=== PATIENT | female | born 1935 | race Caucasian/White ===

== ENCOUNTER 2016-06-07 18:35 | Emergency (ER) | END 2016-06-07 19:22 | disposition home or self-care (01) | DX: H10.9 Unspecified conjunctivitis (principal); I10 Essential (primary) hypertension; E11.9 Type 2 diabetes mellitus without complications; Z79.84 Long term (current) use of oral hypoglycemic drugs ==

== ENCOUNTER 2016-06-17 16:33 | Inpatient (IN) | payer OTHER ==
[~2016-06-17] VITALS: Ht 152.4 cm; Wt 70.0 kg
[~2016-06-17 16:33] MED LIST: AMLO5TAB4 PO; CEPH500C PO; CETI10CA PO; CHLO25TA13 PO; METF-382 PO; NAPH15DR22 BOTH EYES; ONDA-43 PO; POLY10DR19 BOTH EYES; SIMV40TA2 PO; SITA100T8 PO
[2016-06-17] MEDS ORDERED: CEFTRIAXONE 1 GM/50 ML (PMX) 50 ML IVPB STA (20:20)
[2016-06-17] MEDS ORDERED: SODIUM CHLORIDE 0.9% 1L BAG IV* STA (20:20)
--- NOTE | 2016-06-17 20:57 | RADRPT ---
PROCEDURE: XR Chest. CLINICAL INDICATION: See possible sepsis. TECHNIQUE: Single frontal view of the chest was obtained COMPARISON: One-view chest x-ray June 01, 2015 at a 18 PA. FINDINGS: There are atherosclerotic calcifications in the aortic arch. There are degenerative osteophytes in the thoracic spine. The soft tissues are generous. The heart, pulmonary vasculature, lung marino an d pleural spaces are normal. There is a suboptimal inspiratory effort. No changes noted compared to the prior study. IMPRESSION: 1. Stable chest x-ray with no evidence of active cardiopulmonary disease. RPTAT:AAJJ Physician Dave Date Time Electronically viewed and signed by Jesus Manuel Mullins Physician on 06/17/2016 20:57 JEFFERSON/
[2016-06-17 21:31] LABS: HEMATOCRIT 42.8 % (37.0-47.0); HEMOGLOBIN 14.5 g/dl (12.0-16.0); MEAN CORPUSCULAR HEMOGLOBIN 31.4 pg (29.0-33.0); MEAN CORPUSCULAR VOLUME 92.2 fl (82.0-101.0); MEAN PLATELET VOLUME 8.5 fl (7.4-10.4); PLATELET COUNT 362 10^3/UL (140-440); RED BLOOD COUNT 4.64 10^6/ul (4.20-5.40); RED CELL DISTRIBUTION WIDTH 13.6 % (11.5-14.5); UNCORRECTED WBC 28.2 10^3/ul (4.8-10.8); WHITE BLOOD COUNT 28.2 10^3/ul (4.8-10.8)
[2016-06-17 21:38] LABS: CONDITION 1; LH ANALYZER COMMENTS 1; SUSPECT 1
[2016-06-17 21:40] LABS: INR 0.99; PROTIME 13.1 Sec (12.2-14.2)
[2016-06-17 21:41] LABS: PARTIAL THROMBOPLASTIN TIME 29.2 Sec (25.0-35.0)
[2016-06-17 21:51] LABS: ALBUMIN 3.9 g/dl (3.3-4.9); POTASSIUM 3.4 mmol/L (3.5-5.1)
[2016-06-17 21:53] LABS: CREATININE 0.63 mg/dl (0.44-1.00)
[2016-06-17 21:54] LABS: ALBUMIN/GLOBULIN RATIO 1.14; TOTAL PROTEIN 7.3 g/dl (6.1-8.1)
[2016-06-17 21:55] LABS: CALCIUM 8.7 mg/dl (8.4-10.2)
[2016-06-17 22:04] LABS: TROPONIN-I 0.019 ng/ml (0.00-0.12)
[2016-06-17] MEDS ORDERED: VANCOMYCIN 1 GM (PMX) 250 ML IVPB SCH (22:30)
[2016-06-17 22:34] LABS: ADD UMIC YES; URINE BILIRUBIN (Dip) NEGATIVE (NEGATIVE); URINE BLOOD (Dip) 1+ (NEGATIVE); URINE COLOR LT. YELLOW (YELLOW); URINE GLUCOSE (Dip) NEGATIVE (NEGATIVE); URINE KETONES (Dip) NEGATIVE (NEGATIVE); URINE LEUKOCYTE ESTERASE (Dip) NEGATIVE (NEGATIVE); URINE NITRITE (Dip) NEGATIVE (NEGATIVE); URINE TOTAL PROTEIN (Dip) NEGATIVE (NEGATIVE); URINE UROBILINOGEN (Dip) 0.2 E.U./dL (0.1-1.0)
[2016-06-17 22:49] LABS: BACTERIA,URINE MODERATE; SQUAMOUS EPITHELIAL CELL,UR MODERATE
[2016-06-17 23:09] LABS: LYMPHOCYTES # 2.5 10^3/ul (0.8-2.9); MONOCYTE # 1.4 10^3/ul (0.3-0.9); NEUTROPHIL # 23.1 10^3/ul (1.6-7.5)
[2016-06-17 23:10] LABS: PLATELET ESTIMATE PLT APPEAR ADEQUATE
--- NOTE | 2016-06-17 23:13 | RADRPT ---
PROCEDURE: CT Head without contrast. CLINICAL INDICATION: Sepsis TECHNIQUE: The study was performed utilizing a GE 64-slice multidetector CT scanner. Direct spiral axial CT images of the brain were obtained from the vertex to the skull base without contrast. The CTDI vol is 41.12 mGy and the DLP is 630.2 mGy-cm. The images were reviewed on a PACS workstation. COMPARISON: No prior studies are available for comparison. FINDINGS: Mild diffuse atrophy is seen with a compensatory ventricular enlargement. Mild to white matter dise ase in the periventricular and deep white matter is seen. A chronic infarct in the right anterior i nsular region is seen. The remaining jara-white matter differentiation is maintained. No intra or extra-axial fluid collection or mass effect or shift in the midline structures is seen. The visuali zed paranasal sinuses, mastoid air cells, orbits, and calvarium are unremarkable. Vascular calcifica tions are seen. IMPRESSION: 1. No acute intracranial pathology. 2. Mild diffuse volume loss and mild chronic microvascular ischemic changes. 3. 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 RPTAT: HPNM Physician Payt Date Time Electronically viewed and signed by Physician Paty on 06/17/2016 23:13 /
--- NOTE | 2016-06-17 23:24 | RADRPT ---
PROCEDURE: CT Abdomen and Pelvis without contrast. CLINICAL INDICATION: Sepsis TECHNIQUE: CT scan of the abdomen and pelvis without contrast was performed on a multidetector hig h-resolution CT scanner. The patient was scanned without intravenous contrast. No oral contrast was administered. Coronal and sagittal reformatted images were obtained from the axial source images. Im ages were reviewed on a high-resolution PACS workstation. The total exam CTDI equals 13.95 mGy and the total exam DLP equals 696.76 mGy-cm. One or more of the following dose reduction techniques were used: - Automated exposure control. - Adjustment of the mA and/or kV according to patient size. - Use of iterative reconstruction technique. COMPARISON: 11/23/2015 FINDINGS: Lungs: Linear atelectasis/fibrosis is seen at the lung bases. Mitral annulus region calcification ap parent. Calcification in thoracic aorta. Liver: Minimal hepatic steatosis. 2.1 cm oval fluid density structure in medial segment of the left lobe of liver again seen likely a cyst. Gallbladder: Cholecystectomy. Spleen: No abnormality seen. Stomach: The stomach is not fully distended. No gross abnormality seen. Pancreas: No abnormality seen. Adrenals: No abnormality seen. Kidneys: Bilateral minimal hydronephrosis again seen. No renal stone or ureteral stone is seen. Abdominal aorta: No aneurysm seen. Atherosclerotic calcification is seen. Calcification in superio r mesenteric and bilateral iliac arteries. Lymph nodes: No enlarged lymph nodes are seen. Small bowel: No dilated small bowel loops are seen. Colon: Diverticula in sigmoid and descending colon. There is no specific evidence of acute divertic ulitis seen. Appendix: No abnormality seen. Bladder: No abnormality seen Pelvic organs: Small calcifications again seen in the uterus and small oval areas of decreased dens ity again seen in the uterus consistent with uterine fibroids. Ascites: None seen. Osseous structures: Lumbar spondylosis. Degenerative changes at sacroiliac joints and hips. Likely small bone island in the left ischium again seen. Osteitis pubis. Small umbilical hernia containing fat only. IMPRESSION: Minimal hepatic steatosis. Bilateral minimal hydronephrosis again seen. Atherosclerosis. Colonic d iverticulosis. No specific evidence of acute diverticulitis seen. Consistent with uterine fibroids again seen. Please see above. RPTAT: HJES .Matt Simons MD, MD Date Time Electronically viewed and signed by .Matt Simons MD, on 06/17/2016 23:23 .S/
[2016-06-17] MEDS ORDERED: LIDOCAINE 1% (MDV) 20 ML INJ ONE (23:44)
[2016-06-18] VITALS (11 sets, daily range): BP systolic 111–147; BP diastolic 41–69; PULSE 64–71; RESP 18; TEMP 97.7
[2016-06-18 00:22] LABS: # OF CELLS COUNTED 100
[2016-06-18] MEDS ORDERED: CEFTRIAXONE 1 GM/50 ML (PMX) 50 ML IVPB ONE (00:30)
[2016-06-18 00:33] LABS: # OF CELLS COUNTED 100
[2016-06-18 00:55] LABS: GLUCOSE,CSF 98 mg/dl (50-80)
[2016-06-18 00:57] LABS: %CREANATED RBC CSF 0 %; CSF COLOR COLORLESS; CSF#TUBE COUNT TUBE#1; CSF#TUBES REC'D 4
[2016-06-18 00:58] LABS: %CREANATED RBC CSF 0 %; CSF COLOR COLORLESS; CSF#TUBE COUNT TUBE#4; CSF#TUBES REC'D 4
[2016-06-18] MEDS ORDERED: ONDANSETRON 4 MG INJ IV PRN ×2 (01:30→06:30)
[2016-06-18] MEDS ORDERED: ACETAMINOPHEN 325 MG TAB PO PRN ×2 (01:30→06:30)
--- NOTE | 2016-06-18 01:34 | ERA ---
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 no neuro HPI This 81 -year-old female presents with fever, chills, congestion going on for one day. States that she has a headache, neck pain and back pain is her main symptoms. Missed having a very mild cough. Denies any focal weakness blurred vision or any neurological deficits. 4 hours ago when she was cleaning on the floor she stood up and walked a few steps, became very lightheaded and fell down to a seated position. Denies head injury according to family. ROS All systems reviewed and are negative except as per history of present illness. Medications Home Meds Active Scripts Cetirizine Hcl* (Zyrtec*) 10 Mg Capsule, 10 MG PO DAILY, #30 TAB.CHEW Prov:HUSSEIN CORTES CHIEF SUSTAINABILITY OFFICER 06/07/16 Naphazoline-Pheniramine* (Visine-A*) 15 Ml Drops, 2 DROP BOTH EYES Q4H Y for RED EYES, #1 BOT Prov:HUSSEIN CORTES NP 06/07/16 Polymyxin B Sulfate-TMP* (Polymyxin B-TMP Eye Drops*) 10 Ml Drops, 1 DROP BOTH EYES QID for 7 Days, EA Prov:HUSSEIN CORTES CHIEF SUSTAINABILITY OFFICER 06/07/16 Amlodipine Besylate* (Norvasc*) 5 Mg Tablet, 5 MG PO BID, #60 TAB Prov:KRISTIAN ERICKSON MD 11/24/15 Cephalexin* (Cephalexin*) 500 Mg Capsule, 500 MG PO Q8, #21 CAP Prov:KRISTIAN ERICKSON MD 11/24/15 Ondansetron Hcl* (Zofran*) 4 Mg Tab, 4 MG PO Q6H Y for NAUSEA AND OR VOMITING, # 20 TAB Prov:KRISTIAN ERICKSON MD 11/24/15 Reported Medications Sitagliptin* (Januvia*) 100 Mg Tablet, 100 MG PO DAILY, #30 TAB 11/23/15 Simvastatin* (Zocor*) 40 Mg Tablet, 40 MG PO QHS, #30 TAB 11/23/15 Chlorthalidone* (Chlorthalidone*) 25 Mg Tablet, 25 MG PO DAILY, TAB 11/23/15 Metformin Hcl* (Metformin Hcl*) 500 Mg Tablet, 500 MG PO BID 05/20/13 Allergies Allergies: Coded Allergies: No Known Drug Allergy (Verified Allergy, Unknown, 11/23/15) PMhx/Soc History of Surgery: Yes (Cholecystectomy) Anesthesia Reaction: No Hx Neurological Disorder: No Hx Respiratory Disorders: No Hx Cardiac Disorders: Yes (HTN) Hx Psychiatric Problems: No Hx Miscellaneous Medical Probl: Yes (DM2,Dyslipidemia,[place] Eyes,Ventral Umbilical Hernia) Hx Alcohol Use: No Hx Substance Use: No Hx Tobacco Use: No Smoking Status: Never smoker Physical Exam Vitals Vital Signs Date Time Temp Pulse Resp B/P Pulse Ox O2 Delivery O2 Flow Rate FiO2 06/17/16 17:09 102.8 100 22 160/63 98 Physical Exam Const: [] No acute distress Head: Atraumatic Eyes: Normal Conjunctiva EOMI, PERRLA ENT: Normal External Ears, Nose and Mouth. Neck: Full range of motion..~Pain on attempted flexion of neck. Resp: Clear to auscultation bilaterally Cardio: Regular tachycardia, no murmurs Abd: Soft, non tender, non distended. Normal bowel sounds Skin: No petechiae or rashes Back: No midline or flank tenderness Ext: No cyanosis, or edema Neur: Awake and alert oriented 3, cranial nerves II through XII intact, no cerebellar deficits Psych: Normal Mood and Affect Result Diagram: 06/17/16202906/17/162029 Results 24 hrs Laboratory Tests Test 06/17/16 20:30 06/17/16 22:10 06/17/16 22:30 06/17/16 23:00 Activated Partial Thromboplast Time 29.2Sec Alanine Aminotransferase (ALT/SGPT) 24IU/L Albumin 3.9g/dl Albumin/Globulin Ratio 1.14 Alkaline Phosphatase 137IU/L Anion Gap 19 Aspartate Amino Transf (AST/SGOT) 22IU/L Band Neutrophils % 4.0% Blood Urea Nitrogen 18mg/dl Calcium Level 8.7mg/dl Carbon Dioxide Level 30mmol/L Chloride Level 95mmol/L Creatinine 0.63mg/dl Direct Bilirubin 0.00mg/dl Globulin 3.40g/dl Glucose Level 201mg/dl Hematocrit 42.8% Hemoglobin 14.5g/dl INR International Normalized Ratio 0.99 Indirect Bilirubin 1.0mg/dl Lactic Acid Level 3.5mmol/L 3.2mmol/L Lymphocytes # 2.510^3/ul Lymphocytes % 9.0% Mean Corpuscular Hemoglobin 31.4pg Mean Corpuscular Hemoglobin Concent 34.0g/dl Mean Corpuscular Volume 92.2fl Mean Platelet Volume 8.5fl Monocytes # 1.410^3/ul Monocytes % 5.0% Neutrophils # 23.110^3/ul Neutrophils % 82.0% Platelet Count 47708^3/UL Platelet Estimate PLT APPEAR ADEQUATE Potassium Level 3.4mmol/L Prothrombin Time 13.1Sec Prothrombin Time Ratio 1.0 Red Blood Count 4.6410^6/ul Red Cell Distribution Width 13.6% Sodium Level 141mmol/L Total Bilirubin 1.0mg/dl Total Protein 7.3g/dl Troponin I 0.019ng/ml White Blood Count 28.210^3/ul Urine Bacteria MODERATE Urine Bilirubin NEGATIVE Urine Clarity CLEAR Urine Color LT. YELLOW Urine Glucose NEGATIVE% Urine Hemoglobin 1+ Urine Ketones NEGATIVE Urine Leukocyte Esterase NEGATIVE Urine Microscopic RBC 2-5/HPF Urine Microscopic WBC 0-2/HPF Urine Nitrite NEGATIVE Urine Specific [place] 1.010 Urine Squamous Epithelial Cells MODERATE Urine Total Protein NEGATIVE Urine Urobilinogen 0.2 E.U./dL Urine pH 6.0 CSF Appearance CLEAR CSF Cell Count Tube # TUBE#4 CSF Color COLORLESS CSF Crenated Cells 0% CSF Glucose 98mg/dl CSF Lymphocytes % % CSF Monocytes % % CSF Neutrophils % % CSF RBC 4/uL CSF Total Cells Counted 100 CSF Total Protein 51mg/dl CSF Tubes Submitted 4 CSF Volume 4.0ml CSF WBC 0/uL Current Medications Medications (Trade) Dose Ordered Sig/Osmar Route PRN Reason Start Time Stop Time Status Last Admin Dose Admin Sodium Chloride 2170 ml 2,170 ml BOLUS OVER 2 HOURS STAT IV* 06/17/16 20:20 06/17/16 20:21 DC 06/17/16 20:30 Ceftriaxone Sodium 50 ml @ 100 mls/hr ONCE STAT IVPB 06/17/16 20:20 06/17/16 20:49 DC 06/17/16 20:30 Vancomycin HCl (Vancocin) 250 ml @ 125 mls/hr ONCE IVPB 06/17/16 22:30 06/18/16 00:29 DC 06/17/16 22:22 Lidocaine 20 ml 20 ml STK-MED ONCE .ROUTE 06/17/16 23:44 06/17/16 23:45 DC Ceftriaxone Sodium (Rocephin) 50 ml @ 100 mls/hr ONCE ONCE IVPB 06/18/16 00:30 06/18/16 00:59 DC 06/18/16 00:51 Ondansetron HCl (Zofran Inj) 4 mg ER BRIDGE PRN IV NAUSEA AND/OR VOMITING 06/18/16 01:30 06/19/16 01:29 Acetaminophen (Tylenol Tab) 650 mg ER BRIDGE PRN PO MILD PAIN/FEVER 06/18/16 01:30 06/19/16 01:29 Procedures/MDM 21-year-old female sepsis and stated significant leukocytosis without obvious source. Persistent described patient has a flulike illness or possible meningitis. She was treated with 2 g of Rocephin and vancomycin emergency room lumbar puncture was done. Blood cultures were taken. She is given 30 mL of kilogram IV fluid bolus. She does have a ST depressions in inferior leads of her EKG with no ST elevations. Her troponin is negative but should be trended for signs of any cardiac injury. She was given aspirin 325 mg. Of her EKG She was stated she felt better in the emergency room. Initial CSF studies. He been negative for meningitis. May her for further evaluation and monitoring. Dr. Mirza is admitting the patient. CT head interpretation by myself: No hemorrhage, no mass effect, no midline shift, no herniation. No skull fractures. [address] of pelvis interpretation: I see no acute process, no air-fluid levels indicating obstruction, no free air, no abnormal fat stranding, no fractures Chest x-ray interpretation: See no infiltrates, no widened mediastinum, no pneumothorax, no pulmonary edema, no fractures EKG interpretation: Normal sinus rhythm, normal axis, mild ST depressions in leads 2 and 3 concerning for possible ischemia. Critical care time 44 minutes: Includes treatment of sepsis in patient with significant low with a white count as well as signs of possible ischemia an EKG , careful fluid administration, early antibiotic administration, chart review, discussion with patient, family admitting doctor, multiple visits the patient's bedside to reassess status. This does not include any bowl procedures Lumbar puncture note: Sterile technique was used with gown and mask, Gloves. Patient was cleaned with iodine, anesthetized with 4 mL of lidocaine with epinephrine. 20-gauge lumbar puncture needle was used to easily obtain clear cerebral spinal fluid at the L2-L3 level. Patient tolerated the procedure well or no complications. Departure Diagnosis: Primary Impression: Sepsis Additional Impressions: Acute headache Syncope Lactic acidosis Condition: Serious EARL BLACKBURN DO Jun 18, 2016 01:33
[2016-06-18] MEDS ORDERED: NACL 0.9% 3 ML SYG IV SCH (06:30)
[2016-06-18] MEDS ORDERED: LEVOFLOXACIN 500MG/D5W (PMX) 100 ML IVPB ONE (06:30)
[2016-06-18] MEDS ORDERED: NAPHAZOLINE/PHENIRAMINE 15 ML OPH BOTH EYES PRN (06:30)
[2016-06-18] MEDS ORDERED: LORAZEPAM 0.5 MG TAB PO PRN (06:30)
[2016-06-18] MEDS ORDERED: ALBUTEROL/IPRATROPIUM (NEB) 3 ML AMP HHN PRN (06:30)
[2016-06-18] MEDS ORDERED: morphine 2 MG INJ IV PRN (06:30)
--- NOTE | 2016-06-18 06:42 | HP ---
Date/Time of Note Date/Time of Note DATE: 06/18/16 TIME: 06:29 Assessment/Plan VTE Prophylaxis VTE Prophylaxis Intervention: heparin Lines/Catheters Urinary Cath still in place: No Assessment/Plan Assessment/Plan IMPRESSION 1. Sepsis, with unknown source, but possible meningitis - Cont abx - f/u Culture results, including LP result - ID consult 2. ST depression - no chest pain - trop x 1 neg, will trend - Will obtain 2D-echo and cardiology consult 3. HTN: - cont home meds and adjust as needed 4. Diabetes - hold metformin especially given elevated lactate - cont Januvia and insulin - check A1c HPI/ROS Admit Date/Time Admit Date/Time Jun 18, 2016 at 01:20 Hx of Present Illness This is a an 80-year-old female with past medical history of hypertension, diabetes mellitus, dyslipidemia, who presents to the hospital with complain of fever, chills, headache, neck pain and back pain and very mild cough. Denies any focal weakness blurred vision or any neurological deficits. 4 hours prior to presenting to ER, while she was cleaning on the floor, she stood up and walked a few steps, became very lightheaded and fell down to a seated position. not sure if lost consciousness. Denies head injury according to family. Pt was last admitted here on 11/23/2015 secondary to having abdominal discomfort accompanied with nausea and 4 episodes of nonbilious, nonbloody vomiting. In ER, she was febrile with a temp of 102.8 with HR of 100. She also was found to have a WBC of 28K. UA, CXR, CTa/p and Head CT neg for acute findings. LP was done in ER. Of note, EKG showed ST depression. pt without chest pain. trop x 1 neg . PMH/Family/Social Past Medical History Medical History: diabetes, hypertension Social History Alcohol Use: none Smoking Status: Never smoker Drug Use: none Exam/Review of Systems Vital Signs Vitals Vital Signs Date Time Temp Pulse Resp B/P Pulse Ox O2 Delivery O2 Flow Rate FiO2 06/18/16 05:24 68 06/18/16 04:00 97.7 22 119/58 99 Room Air Exam Exam GENERAL APPEARANCE: The patient is lying in bed comfortably without any acute distress. She is awake, alert, oriented. She is able to answer my questions properly. HEENT no obvious head deformity, EOMI, PERRL RESPIRATORY: Effort is normal. Clear to auscultate bilaterally. CARDIOVASCULAR: tachycardic with regular rhythm CHEST: clear GASTROINTESTINAL: soft, nontender, not distended. Bowel sound is present. No guarding, no rebound. NEUROLOGIC: no focal deficit Labs Result Diagram: 06/17/16202906/17/162029 Medications Medications Current Medications Amlodipine Besylate (Norvasc) 5 mg BID PO ; Start 06/18/16 at 09:00; Status UNV Chlorthalidone (Hygroton) 25 mg DAILY PO ; Start 06/18/16 at 09:00; Status UNV Naphazoline HCl/ Pheniramine Maleate (Visine-A) 2 drop Q4H PRN BOTH EYES RED EYES; Start 06/18/16 at 06:30; Status UNV Polymyxin/ Trimethoprim Sulfate (Polytrim Oph) 1 drop QID BOTH EYES ; Start 06/18 at 09:00; Status UNV Miscellaneous Information 100 mg DAILY PO ; Start 06/18/16 at 09:00; Status UNV Atorvastatin Calcium (Lipitor) 20 mg HS PO ; Start 06/18/16 at 21:00; Status UNV Lorazepam (Ativan) 0.5 mg Q8H PRN PO ANXIETY; Start 06/18/16 at 06:30; Status UNV Ondansetron HCl (Zofran Inj) 4 mg Q6H PRN IV NAUSEA AND/OR VOMITING; Start 06/18 at 06:30; Status UNV Acetaminophen (Tylenol Tab) 650 mg Q6H PRN PO PAIN LEVEL 1-3 OR FEVER; Start at 06:30; Status UNV Morphine Sulfate (morphine) 2 mg Q4H PRN IV PAIN LEVEL 7-10; Start 06/18/16 at 06:30; Status UNV Famotidine (Pepcid) 20 mg Q12 PO ; Start 06/18/16 at 09:00; Status UNV Heparin Sodium (Porcine) 5000 unit 5,000 unit Q12 SC ; Start 06/18/16 at 09:00; Status UNV Levofloxacin/ Dextrose 100 ml @ 100 mls/hr ONCE ONCE IVPB ; Start 06/18/16 at 06:30; Stop 06/18/16 at 07:29 Levofloxacin/ Dextrose (Levaquin 250 Mg/ D5W 50 ml (Pmx)) 50 ml @ 50 mls/hr Q24H IVPB ; Start 06/19/16 at 06:30 RODRICK HART MD Jun 18, 2016 06:40
[2016-06-18] MEDS ORDERED: GLUCOSE GEL 15 GRAM TUBE PO PRN ×2 (07:00)
[2016-06-18] MEDS ORDERED: GLUCAGON 1 MG INJ IM PRN (07:00)
[2016-06-18] MEDS ORDERED: GLUCOSE GEL 15 GRAM TUBE BUCCAL PRN (07:00)
[2016-06-18] MEDS ORDERED: DEXTROSE 50% 50 ML SYRINGE IV PRN ×2 (07:00)
[2016-06-18] MEDS: ASPIRIN 81 MG TAB PO ONE (08:00)
[2016-06-18] MEDS: INSULIN GLARGINE [LANtus] 3 ML PEN SC SCH (08:56)
[2016-06-18] MEDS: INSULIN ASPART [NOVOLOG] 3 ML PEN SC SCH ×4 (08:56→21:28)
[2016-06-18] MEDS: HEPARIN 5,000 UNIT/0.5 ML SYG SC SCH ×2 (08:57→21:28)
[2016-06-18] MEDS: CHLORTHALIDONE 25 MG TAB PO SCH (08:59)
[2016-06-18] MEDS: ASPIRIN (EC) 81 MG TAB PO SCH ×3 (08:59→09:02)
[2016-06-18] MEDS: AMLODIPINE 5 MG TAB PO SCH ×2 (09:00→21:00)
[2016-06-18] MEDS: FAMOTIDINE 20 MG TAB PO SCH (09:00)
[2016-06-18] MEDS: POLYMYXIN/TRIMETHOPRIM 10 ML OPH BOTH EYES SCH ×4 (09:00→21:25)
[2016-06-18] MEDS: LINAGLIPTIN 5 MG TABLET PO SCH (09:00)
[2016-06-18 10:19] LABS: CREATINE KINASE 57 IU/L (23-200)
[2016-06-18 10:20] LABS: POTASSIUM 3.7 mmol/L (3.5-5.1)
[2016-06-18 10:22] LABS: ALBUMIN/GLOBULIN RATIO 1.11; BILIRUBIN,INDIRECT 0.8 mg/dl (0-1.1); BILIRUBIN,TOTAL 0.8 mg/dl (0.2-1.3); CREATININE 0.54 mg/dl (0.44-1.00); TOTAL PROTEIN 5.7 g/dl (6.1-8.1)
[2016-06-18 10:23] LABS: CALCIUM 8.2 mg/dl (8.4-10.2); MAGNESIUM 1.8 mg/dl (1.7-2.5)
[2016-06-18 10:24] LABS: CHOL/HDL RATIO 4.7 RATIO
[2016-06-18 10:36] LABS: HEMATOCRIT 37.4 % (37.0-47.0); HEMOGLOBIN 12.3 g/dl (12.0-16.0); LYMPHOCYTES % 12.5 % (15.0-51.0); MEAN CORPUSCULAR HEMOGLOBIN 30.8 pg (29.0-33.0); MEAN CORPUSCULAR HGB CONC 32.9 g/dl (32.0-37.0); MEAN CORPUSCULAR VOLUME 93.7 fl (82.0-101.0); MEAN PLATELET VOLUME 10.1 fl (7.4-10.4); MONOCYTES % 4.4 % (0.0-11.0); NEUTROPHILS % 78.1 % (39.0-77.0); PLATELET COUNT 315 10^3/UL (140-440); RED BLOOD COUNT 3.99 10^6/ul (4.20-5.40); RED CELL DISTRIBUTION WIDTH 13.8 % (11.5-14.5); WHITE BLOOD COUNT 19.6 10^3/ul (4.8-10.8)
[2016-06-18 10:37] LABS: CK-MB 0.53 ng/ml (0.0-2.4); TROPONIN-I < 0.012 ng/ml (0.00-0.12)
[2016-06-18 10:37] LABS: BASOPHIL # 0.1 10^3/ul (0.0-0.1); BASOPHILS % 0.3 % (0.0-2.0); EOSINOPHILS # 0.8 10^3/ul (0.0-0.5); EOSINOPHILS % 4.2 % (0.0-7.0); LYMPHOCYTES # 2.4 10^3/ul (0.8-2.9); MONOCYTE # 0.9 10^3/ul (0.3-0.9); NEUTROPHIL # 15.3 10^3/ul (1.6-7.5)
--- NOTE | 2016-06-18 13:34 | CONS ---
DATE OF ADMISSION: 06/18/2016 DATE OF CONSULTATION: 06/18/2016 TYPE OF CONSULTATION: Infectious disease. REASON FOR CONSULTATION: Antibiotic management. HISTORY OF PRESENT ILLNESS: Betty Carlton is an 81-year-old female with a number of prob lems, who comes in now with sepsis and is being seen for antibiotic management. Her past problems i nclude: 1. Hypertension. 2. Adult-onset diabetes mellitus. 3. Dyslipidemia. Acutely she comes in with complaints of fever, chills, headache, neck pain, back pain, mild cough. She does not have any focal weakness or any neurological deficits. Four hours prior to presenting t o the emergency room she became very lightheaded and fell down to a seated position, did not lose co nsciousness. Denies head injury. She was brought in by her family. in the emergency room, she was febrile at 102.8. An elevated white count. Her white count was 28.2, H and H of 14.5 and 42.8, corby telet count of 362,000. Today, June 18, which the date of consultation and dictation, her whit e count is 19.6. She has 78% polys. BUN and creatinine are 13/0.54. Her urine is negative for nitr ites and leukocyte esterase. Of interest is the fact that her spinal tap showed 1 white cell and th en zero white cells in the 4th tube. Glucose is 98, protein is 51, which rules out meningitis. A u rine culture is negative. CSF culture is pending. The patient was started on Levaquin. She had re ceived ceftriaxone. She is currently on Levaquin. Chest x-ray shows a stable chest x-ray, with no evidence of acute cardiopulmonary disease. A CT scan of the abdomen and pelvis shows minimal hepati c steatosis, bilateral minimal hydronephrosis, atherosclerosis, coronary diverticulosis, no evidence of acute diverticulitis, consistent with uterine fibroids. There is linear atelectasis and fibrosi s at the lung bases. She had a cholecystectomy, bilateral minimal hydronephrosis, diverticula, but no diverticulitis, lumbar spondylosis, a small umbilical hernia. A CT scan of the brain shows no ac [place] intracranial pathology, mild diffuse volume loss, mild chronic microvascular ischemic changes, c hronic infarct in the right anterior insular region. PAST MEDICAL HISTORY: Operations as outlined. FAMILY HISTORY: Noncontributory. SOCIAL HISTORY: She does not smoke, drink or abuse drugs. ALLERGIES: NONE TO PENICILLIN, SULFA OR FOODS. MEDICATIONS: Per chart. REVIEW OF SYSTEMS: As per HPI. PHYSICAL EXAMINATION: GENERAL: The patient is a well-developed, well-nourished female, who is alert, responsive, in no ac [place] distress. VITAL SIGNS: Stable. She is afebrile. SKIN: Without generalized rash. HEENT: Within normal limits. NECK: Supple. LYMPH NODES: None palpable. CHEST: Decreased breath sounds at the bases. HEART: Tachycardic. ABDOMEN: Soft, nontender, without organosplenomegaly or masses. EXTREMITIES: Without cyanosis, clubbing, or edema. RECTAL AND GENITAL EXAM: Deferred. NEUROLOGICAL EVALUATION: No Kernig or Brudzinski signs. No focal neurological abnormalities. IMPRESSION AND PLAN: The patient comes in with significant leukocytosis, but she does not have meni ngitis. Will await her blood cultures. I will dictate my findings to the hospitalist. Dictated By: MAYA PRADO MD, JD/MARIETTA Conf#: [id number] DID#: [id number]
[2016-06-18 14:00] LABS: CREATINE KINASE 57 IU/L (23-200)
[2016-06-18 14:08] LABS: CK-MB 0.68 ng/ml (0.0-2.4)
[2016-06-18 14:18] LABS: TROPONIN-I < 0.012 ng/ml (0.00-0.12)
--- NOTE | 2016-06-18 14:39 | RADRPT ---
Echocardiogram Report Patient Name: AJ GARNICA Gender: Female Date: 1935 Study Date: 18-Jun-2016 Tobacco Sample Puller: CARO Location: [facility] Height(Cm): 152 Weight(Kg): 70 BSA: 1.72 Ref. Physician: RODRICK HART Quality: Adequate Procedures: Transthoracic echocardiogram with complete 2D, M-Mode, and Doppler examination. Indications: Abnormal EKG. 2D/M Mode Doppler Measurement Value Normal Ranges Measurement Value Normal Ranges AoR Diam MM 2.8 cm AV Peak Kyle 1.4 m/sec ACS MM 1.8 cm AV Peak PG 7.6 mmHg LVIDd 2D 3.9 3.5 - 5.6 cm LVOT Peak Kyle 0.9 m/sec LVIDs 2D 2.5 2.1 - 4.1 cm LVOT Peak PG 3.1 mmHg LVPWd 2D 1.2 0.6 - 1.1 cm MV E Peak Kyle 0.9 m/sec IVSd 2D 1.2 0.6 - 1.1 cm MV A Peak Kyle 1.2 m/sec EDV 2D 66.0 cm3 MV E/A 0.8 ESV 2D 16.4 cm3 MV Decel Time 245 msec LA Dimen 2D 3.4 2.3 - 4.0 cm MV Decel [place] 4 MV E/A 0.8 Findings Left Ventricle: Normal left ventricular systolic function. Normal left ventricular cavity size. Mild concentric left ventricular hypertrophy. Ejection fraction is visually estimated at 65 %. Tissue Doppler/Mitral Doppler indices are within normal limits. E/E`=12. Right Ventricle: Normal right ventricular size. Normal right ventricular systolic function. Left Atrium: The left atrium is normal in size. Right Atrium: The right atrium is normal in size. Atrial Septum: Normal atrial septum. Mitral Valve: Mild mitral annular calcification. Mild mitral valve regurgitation. Aortic Valve: No significant aortic stenosis or insufficiency. Aortic sclerosis without stenosis. Trileaflet aortic valve. Tricuspid Valve: Normal appearance of the tricuspid valve. Unable to obtain RVSP due to minimal presence of tricuspid regurgitation. No evidence of tricuspid regurgitation. Pulmonic Valve: Pulmonic valve not well visualized. Pericardium: Normal pericardium with no significant pericardial effusion. Aorta: Normal aortic root. IVC: Normal size and normal respiratory collapse consistent with normal right atrial pressure. Pulmonary Artery: Not well visualized. Conclusions 1.Normal left ventricular systolic function. Normal left ventricular cavity size. Mild concentric left ventricular hypertrophy. Ejection fraction is visually estimated at 65 %. Tissue Doppler/Mitral Doppler indices are within normal limits. E/E`=12. 2.Normal right ventricular size. Normal right ventricular systolic function. 3.Mild mitral annular calcification. Mild mitral valve regurgitation. 4.No significant aortic stenosis or insufficiency. Aortic sclerosis without stenosis. Trileaflet aortic valve. 5.Normal appearance of the tricuspid valve. Unable to obtain RVSP due to minimal presence of tricuspid regurgitation. No evidence of tricuspid regurgitation. 6.Normal pericardium with no significant pericardial effusion. Electronically Signed By: Evans Pickard 18-Jun-2016 14:38:32 -0800 Patient Name: AJ GARNICA Study Date: 18-Jun-2016 [id number]
[2016-06-18] MEDS: ATORVASTATIN 20 MG TAB PO SCH (21:25)
[2016-06-19] VITALS (12 sets, daily range): BP systolic 120–142; BP diastolic 56–73; PULSE 58–69; RESP 16–18
[2016-06-19] MEDS: ACCUCHECK XX SCH (02:00)
[2016-06-19] MEDS: LEVOFLOXACIN 250MG/D5W (PMX) 50 ML IVPB SCH (05:25)
[2016-06-19 06:58] LABS: BASOPHILS % 0.2 % (0.0-2.0); EOSINOPHILS # 1.8 10^3/ul (0.0-0.5); EOSINOPHILS % 10.7 % (0.0-7.0); HEMATOCRIT 40.4 % (37.0-47.0); HEMOGLOBIN 13.9 g/dl (12.0-16.0); LYMPHOCYTES # 3.1 10^3/ul (0.8-2.9); LYMPHOCYTES % 18.4 % (15.0-51.0); MEAN CORPUSCULAR HEMOGLOBIN 31.7 pg (29.0-33.0); MEAN CORPUSCULAR HGB CONC 34.4 g/dl (32.0-37.0); MEAN CORPUSCULAR VOLUME 92.1 fl (82.0-101.0); MEAN PLATELET VOLUME 8.6 fl (7.4-10.4); MONOCYTE # 1.1 10^3/ul (0.3-0.9); MONOCYTES % 6.4 % (0.0-11.0); NEUTROPHIL # 10.9 10^3/ul (1.6-7.5); NEUTROPHILS % 64.3 % (39.0-77.0); PLATELET COUNT 330 10^3/UL (140-440); RED BLOOD COUNT 4.39 10^6/ul (4.20-5.40); RED CELL DISTRIBUTION WIDTH 13.4 % (11.5-14.5); UNCORRECTED WBC 16.9 10^3/ul (4.8-10.8); WHITE BLOOD COUNT 16.9 10^3/ul (4.8-10.8)
[2016-06-19 07:03] LABS: CONDITION 1
[2016-06-19 07:21] LABS: POTASSIUM 3.9 mmol/L (3.5-5.1)
[2016-06-19 07:23] LABS: CREATININE 0.6 mg/dl (0.44-1.00)
[2016-06-19 07:24] LABS: CALCIUM 9.1 mg/dl (8.4-10.2); PHOSPHORUS 3.4 mg/dl (2.5-4.9)
[2016-06-19] MEDS: ASPIRIN (EC) 81 MG TAB PO SCH (09:28)
[2016-06-19] MEDS: FAMOTIDINE 20 MG TAB PO SCH (09:29)
[2016-06-19] MEDS: LINAGLIPTIN 5 MG TABLET PO SCH (09:31)
[2016-06-19] MEDS: AMLODIPINE 5 MG TAB PO SCH ×2 (09:31→21:00)
[2016-06-19] MEDS: CHLORTHALIDONE 25 MG TAB PO SCH (09:31)
[2016-06-19] MEDS: HEPARIN 5,000 UNIT/0.5 ML SYG SC SCH ×2 (09:33→21:25)
[2016-06-19] MEDS: INSULIN ASPART [NOVOLOG] 3 ML PEN SC SCH ×4 (09:33→21:28)
[2016-06-19] MEDS: INSULIN GLARGINE [LANtus] 3 ML PEN SC SCH (09:34)
[2016-06-19] MEDS: POLYMYXIN/TRIMETHOPRIM 10 ML OPH BOTH EYES SCH ×4 (09:42→21:21)
--- NOTE | 2016-06-19 18:51 | CONS ---
Date/Time of Note Date/Time of Note DATE: 06/19/16 TIME: 18:45 Assessment/Plan Assessment/Plan Chief Complaint/Hosp Course Subjective: Alert, lying comfortably in bed, denies pain, no fevers Abx: Levaquin HEENT: Atraumatic, normocephalic, EOMI, PERRL RESPIRATORY: Clear to auscultate bilaterally. CARDIOVASCULAR: S1, S2 with regular rhythm GASTROINTESTINAL: soft, nontender, not distended. Bowel sound is present. No guarding, no rebound. NEUROLOGIC: no focal deficits Assessment: 1. SIRS 2. Acute pyelonephritis 3. DM 4. HTN Plan: Improving, continue abx, f/u final cx, cxr in am [facility] staff Problems: Consultation Date/Type/Reason Admit Date/Time Jun 18, 2016 at 01:20 Initial Consult Date Type of Consultation: ID Exam/Review of Systems Vital Signs Vitals Vital Signs Date Time Temp Pulse Resp B/P Pulse Ox O2 Delivery O2 Flow Rate FiO2 06/19/16 17:02 58 06/19/16 15:55 97.6 18 133/56 98 06/18/16 16:00 21 06/18/16 05:30 Room Air Intake and Output 06/18/16 06/18/16 06/19/16 15:00 23:00 07:00 Intake Total 750 ml 550 ml Balance 750 ml 550 ml Results Result Diagram: 06/19/16 0530 06/19/16 0530 Results 24 hrs Laboratory Tests Test 06/18/16 20:18 06/19/16 00:55 06/19/16 05:30 06/19/16 07:27 Bedside Glucose 190 146 Lactic Acid Level 1.3 Anion Gap 15 Basophils # 0.0 Basophils % 0.2 Blood Urea Nitrogen 15 Calcium Level 9.1 Carbon Dioxide Level 32 H Chloride Level 99 Creatinine 0.60 Eosinophils # 1.8 H Eosinophils % 10.7 H Glucose Level 154 Hematocrit 40.4 Hemoglobin 13.9 Lymphocytes # 3.1 H Lymphocytes % 18.4 Magnesium Level 2.0 Mean Corpuscular Hemoglobin 31.7 Mean Corpuscular Hemoglobin Concent 34.4 Mean Corpuscular Volume 92.1 Mean Platelet Volume 8.6 Monocytes # 1.1 H Monocytes % 6.4 Neutrophils # 10.9 H Neutrophils % 64.3 Nucleated Red Blood Cells # 0.0 Nucleated Red Blood Cells % 0.0 Phosphorus Level 3.4 Platelet Count 330 Potassium Level 3.9 Red Blood Count 4.39 Red Cell Distribution Width 13.4 Sodium Level 142 White Blood Count 16.9 H Test 06/19/16 08:40 06/19/16 11:04 06/19/16 11:59 06/19/16 17:15 Lactic Acid Level 1.2 1.3 Bedside Glucose 187 127 Test 06/19/16 17:57 Lactic Acid Level 1.3 Medications Medications Current Medications Amlodipine Besylate (Norvasc) 5 mg BID PO Last administered on 06/19/16 09:31; Admin Dose 5 MG; Start 06/18/16 at 09:00 Chlorthalidone (Hygroton) 25 mg DAILY PO Last administered on 06/19/16 09:31; Admin Dose 25 MG; Start 06/18/16 at 09:00 Naphazoline HCl/ Pheniramine Maleate (Visine-A) 2 drop Q4H PRN BOTH EYES RED EYES; Start 06/18/16 at 06:30 Polymyxin/ Trimethoprim Sulfate (Polytrim Oph) 1 drop QID BOTH EYES Last administered on 06/19/16 18:31; Admin Dose 1 DROP; Start 06/18/16 at 09:00 Linagliptin (Tradjenta) 5 mg DAILY PO Last administered on 06/19/16 09:31; Admin Dose 5 MG; Start 06/18/16 at 09:00 Atorvastatin Calcium (Lipitor) 20 mg HS PO Last administered on 06/18/16 21:25 ; Admin Dose 20 MG; Start 06/18/16 at 21:00 Lorazepam (Ativan) 0.5 mg Q8H PRN PO ANXIETY; Start 06/18/16 at 06:30 Ondansetron HCl (Zofran Inj) 4 mg Q6H PRN IV NAUSEA AND/OR VOMITING; Start 06/18 at 06:30 Acetaminophen (Tylenol Tab) 650 mg Q6H PRN PO PAIN LEVEL 1-3 OR FEVER; Start at 06:30 Morphine Sulfate (morphine) 2 mg Q4H PRN IV PAIN LEVEL 7-10; Start 06/18/16 at 06:30 Famotidine (Pepcid) 20 mg DAILY PO Last administered on 06/19/16 09:29; Admin Dose 20 MG; Start 06/18/16 at 09:00 Heparin Sodium (Porcine) 5000 unit 5,000 unit Q12 SC Last administered on 09:33; Admin Dose 5,000 UNIT; Start 06/18/16 at 09:00 Levofloxacin/ Dextrose (Levaquin 250 Mg/ D5W 50 ml (Pmx)) 50 ml @ 50 mls/hr Q24H IVPB Last administered on 06/19/16 05:25; Admin Dose 50 MLS/HR; Start 06/19 at 06:30 Insulin Glargine (Lantus) 10 unit DAILY@08 SC Last administered on 06/19/16 09: 34; Admin Dose 10 UNIT; Start 06/18/16 at 08:00 Diagnostic Test (Pha) (Accucheck) 1 ea 02 XX ; Start 06/19/16 at 02:00 Miscellaneous Information 1 ea NOTE XX ; Start 06/18/16 at 07:00 Glucose (Glutose) 15 gm Q15M PRN PO DECREASED GLUCOSE; Start 06/18/16 at 07:00 Glucose (Glutose) 22.5 gm Q15M PRN PO DECREASED GLUCOSE; Start 06/18/16 at 07:00 Dextrose (D50w Syringe) 25 ml Q15M PRN IV DECREASED GLUCOSE; Start 06/18/16 at 07:00 Dextrose (D50w Syringe) 50 ml Q15M PRN IV DECREASED GLUCOSE; Start 06/18/16 at 07:00 Glucagon (Glucagen) 1 mg Q15M PRN IM DECREASED GLUCOSE; Start 06/18/16 at 07:00 Glucose (Glutose) 15 gm Q15M PRN BUCCAL DECREASED GLUCOSE; Start 06/18/16 at 07: 00 Aspirin (Halfprin) 81 mg DAILY PO Last administered on 06/19/16 09:28; Admin Dose 81 MG; Start 06/18/16 at 09:00 Influenza Virus Vaccine (Fluzone) 0.5 ml ONCE ONCE IM* ; Start 06/21/16 at 09:00 ; Stop 06/21/16 at 09:01 MARTI KUMAR NP Jun 19, 2016 18:51
--- NOTE | 2016-06-19 18:52 | CONS ---
DATE OF ADMISSION: 06/18/2016 DATE OF CONSULTATION: 06/18/2016 REASON FOR CONSULTATION: Abnormal electrocardiogram. HISTORY OF PRESENT ILLNESS: The patient is an 81-year-old female who initially came with a fever of 101, chills, and rigors with mild productive cough and headache. She denies any chest pain, shortn ess of breath, dizziness, syncope, or palpitations. Denies nausea or vomiting. Cardiology was cons ulted because on 12-lead EKG the patient showed ST depression in lead II, III, and aVF. PAST MEDICAL HISTORY: Significant for hypertension, dyslipidemia, diabetes mellitus. SOCIAL HISTORY: Denies any smoking, alcohol, or recreational drugs. ALLERGIES: NO KNOWN DRUG ALLERGIES. CURRENT MEDICATIONS: Include: 1. Amlodipine. 2. Chlorthalidone. 3. Tradjenta. 4. Pepcid. 5. Aspirin. 6. Insulin. 7. Atorvastatin. 8. Levofloxacin. REVIEW OF SYSTEMS: Unremarkable except that mentioned in the HPI. PHYSICAL EXAMINATION: VITAL SIGNS: His temperature is 98, heart rate of 67, blood pressure 160/41 mmHg, breathing at 18, and saturating 94%. GENERAL: The patient's awake, alert, oriented, no apparent distress. NECK: No JVD or carotid bruit. CARDIOVASCULAR: Regular rate and rhythm. No murmur, rub, or gallop. LUNGS: Clear to auscultation. ABDOMEN: Soft. Bowel sounds are present. There is no organomegaly. EXTREMITIES: No pedal edema. Pedal pulses felt bilaterally. Review of 12-lead EKG shows normal sinus rhythm with a ventricular rate of 84 beats per minute, norm al VA, normal QRS, and prolonged QT intervals with ST depression in lead II, III, aVF, and prolonged QT intervals. LABORATORY DATA: Sodium 142, potassium 3.7, chloride 103, CO2 of 28, BUN 13, creatinine 0.54. Trig lyceride 182, cholesterol 152, LDL 84, HDL 32. WBC 16.9, hemoglobin 13.9, hematocrit 40.[address] atelet of 330. Chest x-ray shows no congestion or infiltrate. ASSESSMENT AND PLAN: An 81-year-old female with abnormal electrocardiogram with history of diabetes , hypertension, and dyslipidemia. Review of 12-lead EKG shows ST segment depression in II, III, aVF. She has been ruled out for acute coronary syndrome with serial negative troponins. An echocardiogram shows normal left ventricular systolic function, estimated left ventricular ejection fraction of 65% with no segmental wall motion abnormality. RECOMMENDATIONS: 1. Considering her risk factors, recommend Lexiscan. Meanwhile, start the patient on Imdur. 2. Start the patient on Coreg. Continue Norvasc and chlorthalidone. 3. Continue antidiabetic medication. 4. Continue GI and DVT prophylaxis. 5. Continue atorvastatin. 6. Continue antibiotics empirically for possible sepsis. Dictated By: ALVARO CASANOVA MD SR/NTS Conf#: [id number] DID#: [id number] CC: RODRICK HART MD;*EndCC*
[2016-06-19] MEDS: ATORVASTATIN 20 MG TAB PO SCH (21:23)
[2016-06-20] VITALS (12 sets, daily range): BP systolic 121–145; BP diastolic 58–70; PULSE 68–75; RESP 16–18
[2016-06-20] MEDS: ACCUCHECK XX SCH (02:00)
[2016-06-20] MEDS: LEVOFLOXACIN 250MG/D5W (PMX) 50 ML IVPB SCH (05:00)
[2016-06-20 06:53] LABS: BASOPHILS % 0.3 % (0.0-2.0); EOSINOPHILS # 1.7 10^3/ul (0.0-0.5); EOSINOPHILS % 12.5 % (0.0-7.0); HEMATOCRIT 42.3 % (37.0-47.0); HEMOGLOBIN 14.4 g/dl (12.0-16.0); LYMPHOCYTES # 3.1 10^3/ul (0.8-2.9); LYMPHOCYTES % 22.4 % (15.0-51.0); MEAN CORPUSCULAR HEMOGLOBIN 31.6 pg (29.0-33.0); MEAN CORPUSCULAR HGB CONC 34.1 g/dl (32.0-37.0); MEAN CORPUSCULAR VOLUME 92.5 fl (82.0-101.0); MEAN PLATELET VOLUME 8.1 fl (7.4-10.4); MONOCYTE # 0.9 10^3/ul (0.3-0.9); MONOCYTES % 6.8 % (0.0-11.0); PLATELET COUNT 351 10^3/UL (140-440); RED BLOOD COUNT 4.57 10^6/ul (4.20-5.40); RED CELL DISTRIBUTION WIDTH 13.6 % (11.5-14.5); UNCORRECTED WBC 13.7 10^3/ul (4.8-10.8); WHITE BLOOD COUNT 13.7 10^3/ul (4.8-10.8)
[2016-06-20 06:57] LABS: CONDITION 1
--- NOTE | 2016-06-20 07:00 | PN ---
DATE: 06/19/2016 SUBJECTIVE: The patient denies neck pain. No fevers or chills. No chest pain. Seen by ID team ye sterday. OBJECTIVE VITAL SIGNS: Stable. GENERAL: The patient is lying in bed, answering questions appropriately. No acute distress. HEENT: Pupils equal, round, reactive to light. Extraocular muscles intact. NECK: Supple, no thyromegaly. LUNGS: Clear to auscultation bilaterally. CARDIOVASCULAR: S1, S2 heard. No rubs or gallops. ABDOMEN: Soft, nontender, nondistended. Normal bowel sounds. No rebound or guarding. MUSCULOSKELETAL: No lower extremity edema bilaterally. NEUROLOGIC: No focal deficits. LABORATORY DATA: The basic metabolic panel was normal. The electrolytes were normal. The white bl ood cell count was 16.9; that is improved. The rest of the CBC is normal. Thus far, the CSF cultur e and gram stains are negative. Blood cultures are negative. ASSESSMENT AND PLAN: An 81-year-old female with sepsis, possibly secondary to meningitis, and also ST depression on EKG. 1. Again, sepsis possibly secondary meningitis, seen by infectious disease team yesterday on antibi otics. White count is trending down. So far the CSF studies have been negative. Blood cultures oliver ve been negative. There is a presumed diagnosis of meningitis, however, even though the CSF fluid a nalysis is inconclusive and there are no WBCs. In any event, continue antibiotics. Follow up ID re commendations. Tylenol p.r.n. pain and fevers and pain control medications as well. 2. ST depression. Again, troponin has been negative thus far. Echocardiogram showed EF of 65%, no rmal left ventricular systolic function, normal left ventricular cavity size, no significant aortic stenosis or insufficiency. But given her EKG findings, we will go ahead and get cardiology consulta tion. The patient may benefit from stress test. 3. History of type 2 diabetes. A1c is 8.2. Sugars have been stable. Continue moderate insulin sl iding scale. She is also on Tradjenta and Lantus as well. 4. Hypertension. Blood pressure is stable. Continue current medications. 5. High cholesterol. Continue Lipitor. 6. Gastrointestinal prophylaxis. Pepcid. 7. Deep venous thrombosis prophylaxis. Heparin subcutaneously. Dictated By: PETEY ESTEBAN Conf#: [id number] [facility]#: [id number]
[2016-06-20 07:17] LABS: CALCIUM 8.7 mg/dl (8.4-10.2); CREATININE 0.53 mg/dl (0.44-1.00)
[2016-06-20 07:19] LABS: POTASSIUM 2.9 mmol/L (3.5-5.1)
[2016-06-20] MEDS: ASPIRIN (EC) 81 MG TAB PO SCH (08:14)
[2016-06-20] MEDS: LINAGLIPTIN 5 MG TABLET PO SCH (08:14)
[2016-06-20] MEDS: FAMOTIDINE 20 MG TAB PO SCH (08:14)
[2016-06-20] MEDS: CHLORTHALIDONE 25 MG TAB PO SCH (08:15)
[2016-06-20] MEDS: HEPARIN 5,000 UNIT/0.5 ML SYG SC SCH ×2 (08:15→21:39)
[2016-06-20] MEDS: AMLODIPINE 5 MG TAB PO SCH ×2 (08:15→20:54)
[2016-06-20] MEDS: INSULIN ASPART [NOVOLOG] 3 ML PEN SC SCH ×4 (08:16→20:54)
[2016-06-20] MEDS: INSULIN GLARGINE [LANtus] 3 ML PEN SC SCH (08:17)
[2016-06-20] MEDS: POLYMYXIN/TRIMETHOPRIM 10 ML OPH BOTH EYES SCH ×4 (08:25→20:53)
[2016-06-20] MEDS: POTASSIUM CHLORIDE 250 ML IVPB SCH ×2 (10:18→14:16)
--- NOTE | 2016-06-20 10:49 | PN ---
Date/Time of Note Date/Time of Note DATE: 06/20/16 TIME: 10:46 Assessment/Plan VTE Prophylaxis VTE Prophylaxis Intervention: heparin Lines/Catheters IV Catheter Type (from Nrs): Peripheral IV Urinary Cath still in place: No Assessment/Plan Assessment/Plan An 81-year-old female with sepsis, possibly secondary to meningitis, and also ST depression on EKG. 1. Sepsis 2/2 to pyelonephritis - no meningitis as per ID, will continue with levaquin, marked improvement 2. ST depression. Again, troponin has been negative thus far. Echocardiogram showed EF of 65%, normal left ventricular systolic function, normal left ventricular cavity size, no significant aortic stenosis or insufficiency. But given her EKG findings, we will go ahead and get cardiology consultation. Lexiscan as per cardio 3. Type 2 diabetes. A1c is 8.2. Sugars have been stable. Continue moderate insulin sliding scale. She is also on Tradjenta and Lantus as well. diabetic consult 4. Hypertension essential. Blood pressure is stable. Continue current medications. 5. High cholesterol. Continue Lipitor. 6. Gastrointestinal prophylaxis. Pepcid. 7. Deep venous thrombosis prophylaxis. Heparin subcutaneously. dispo - f/u recs, patient is doing better, possible lexiscan - as per clinical course. this progress note took greater than 30 minutes to complete Subjective 24 Hr Interval Summary Free Text/Dictation Patient had no overnight events. Denies any fevers/chills or chest pain. Spoke to her and the daughter at bedside about the care plan. 15 minutes spent. Exam/Review of Systems Vital Signs Vitals Vital Signs Date Time Temp Pulse Resp B/P Pulse Ox O2 Delivery O2 Flow Rate FiO2 06/20/16 09:24 68 06/20/16 08:34 98.0 18 133/60 98 06/18/16 16:00 21 06/18/16 05:30 Room Air Intake and Output 06/19/16 06/19/16 06/20/16 15:00 23:00 07:00 Intake Total 850 ml 400 ml Output Total 1000 ml Balance -150 ml 400 ml Exam Gen Tracee: NAD, AAOx4 HEENT: NC/AT, PERRLA, EOMI, no pharyngeal erythema, no tonsillar exudates, no lymphadenopathy, no JVD, no carotid bruits NECK: supple, no thyromegaly THORAX: symmetrical, no obvious deformities CV: S1S2, RRR, no M/G/R Lungs: CTAB no W/C/R/R Abd: soft, NT/ND, +BS, no rebound, no guarding, neg HSM EXT: no edema, no ecchymosis, no clubbing, FROM Neuro: CN II-XII grossly intact, no focal deficits Psych: good mentation, alert and oriented, good mood and affect Skin: C/D/I Results Result Diagram: 06/20/16 0550 06/20/16 0550 Results 24 hrs Laboratory Tests Test 06/19/16 11:04 06/19/16 11:59 06/19/16 17:15 06/19/16 17:57 Bedside Glucose 187 127 Lactic Acid Level 1.3 1.3 Test 06/19/16 20:41 06/20/16 05:50 06/20/16 07:14 Bedside Glucose 190 142 Anion Gap 15 Basophils # 0.0 Basophils % 0.3 Blood Urea Nitrogen 17 Calcium Level 8.7 Carbon Dioxide Level 29 Chloride Level 101 Creatinine 0.53 Eosinophils # 1.7 H Eosinophils % 12.5 H Glucose Level 136 Hematocrit 42.3 Hemoglobin 14.4 Lymphocytes # 3.1 H Lymphocytes % 22.4 Mean Corpuscular Hemoglobin 31.6 Mean Corpuscular Hemoglobin Concent 34.1 Mean Corpuscular Volume 92.5 Mean Platelet Volume 8.1 Monocytes # 0.9 Monocytes % 6.8 Neutrophils # 8.0 H Neutrophils % 58.0 Nucleated Red Blood Cells # 0.0 Nucleated Red Blood Cells % 0.0 Platelet Count 351 Potassium Level 2.9 *L Red Blood Count 4.57 Red Cell Distribution Width 13.6 Sodium Level 142 White Blood Count 13.7 H Medications Medications Current Medications Amlodipine Besylate (Norvasc) 5 mg BID PO Last administered on 06/20/16 08:15; Admin Dose 5 MG; Start 06/18/16 at 09:00 Chlorthalidone (Hygroton) 25 mg DAILY PO Last administered on 06/20/16 08:15; Admin Dose 25 MG; Start 06/18/16 at 09:00 Naphazoline HCl/ Pheniramine Maleate (Visine-A) 2 drop Q4H PRN BOTH EYES RED EYES; Start 06/18/16 at 06:30 Polymyxin/ Trimethoprim Sulfate (Polytrim Oph) 1 drop QID BOTH EYES Last administered on 06/20/16 08:25; Admin Dose 1 DROP; Start 06/18/16 at 09:00 Linagliptin (Tradjenta) 5 mg DAILY PO Last administered on 06/20/16 08:14; Admin Dose 5 MG; Start 06/18/16 at 09:00 Atorvastatin Calcium (Lipitor) 20 mg HS PO Last administered on 06/19/16 21:23 ; Admin Dose 20 MG; Start 06/18/16 at 21:00 Lorazepam (Ativan) 0.5 mg Q8H PRN PO ANXIETY; Start 06/18/16 at 06:30 Ondansetron HCl (Zofran Inj) 4 mg Q6H PRN IV NAUSEA AND/OR VOMITING; Start 06/18 at 06:30 Acetaminophen (Tylenol Tab) 650 mg Q6H PRN PO PAIN LEVEL 1-3 OR FEVER; Start at 06:30 Morphine Sulfate (morphine) 2 mg Q4H PRN IV PAIN LEVEL 7-10; Start 06/18/16 at 06:30 Famotidine (Pepcid) 20 mg DAILY PO Last administered on 06/20/16 08:14; Admin Dose 20 MG; Start 06/18/16 at 09:00 Heparin Sodium (Porcine) 5000 unit 5,000 unit Q12 SC Last administered on 08:15; Admin Dose 5,000 UNIT; Start 06/18/16 at 09:00 Levofloxacin/ Dextrose (Levaquin 250 Mg/ D5W 50 ml (Pmx)) 50 ml @ 50 mls/hr Q24H IVPB Last administered on 06/20/16 05:00; Admin Dose 50 MLS/HR; Start 06/19 at 06:30 Insulin Glargine (Lantus) 10 unit DAILY@08 SC Last administered on 06/20/16 08: 17; Admin Dose 10 UNIT; Start 06/18/16 at 08:00 Diagnostic Test (Pha) (Accucheck) 1 ea 02 XX ; Start 06/19/16 at 02:00 Miscellaneous Information 1 ea NOTE XX ; Start 06/18/16 at 07:00 Glucose (Glutose) 15 gm Q15M PRN PO DECREASED GLUCOSE; Start 06/18/16 at 07:00 Glucose (Glutose) 22.5 gm Q15M PRN PO DECREASED GLUCOSE; Start 06/18/16 at 07:00 Dextrose (D50w Syringe) 25 ml Q15M PRN IV DECREASED GLUCOSE; Start 06/18/16 at 07:00 Dextrose (D50w Syringe) 50 ml Q15M PRN IV DECREASED GLUCOSE; Start 06/18/16 at 07:00 Glucagon (Glucagen) 1 mg Q15M PRN IM DECREASED GLUCOSE; Start 06/18/16 at 07:00 Glucose (Glutose) 15 gm Q15M PRN BUCCAL DECREASED GLUCOSE; Start 06/18/16 at 07: 00 Aspirin (Halfprin) 81 mg DAILY PO Last administered on 06/20/16 08:14; Admin Dose 81 MG; Start 06/18/16 at 09:00 Influenza Virus Vaccine 0.5 ml 0.5 ml ONCE ONCE IM* ; Start 06/21/16 at 09:00; Stop 06/21/16 at 09:01 Potassium Chloride (KCl 40 MEQ/250 ML NS) 250 ml @ 62.5 mls/hr Q4H IVPB Last administered on 06/20/16 10:18; Admin Dose 62.5 MLS/HR; Start 06/20/16 at 09:00; Stop 06/20/16 at 16:59 NEVAEH SAENZ MD Jun 20, 2016 10:49
--- NOTE | 2016-06-20 12:00 | CONS ---
Date/Time of Note Date/Time of Note DATE: 06/20/16 TIME: 11:56 Assessment/Plan Assessment/Plan Chief Complaint/Hosp Course IMp: 1.Chest pain-negative troponinx 3 2.Abnl ecg-inferior ST depressions 3.HTN 4.HL 5.Leukocytosis Recc: -Tele -serial ecg's -Continue norvasc -Continue statin -Contineu asa -Contineu abx's and f/u cx data -Am lexsiacn to assess significance of abnl ecg Problems: Consultation Date/Type/Reason Admit Date/Time Jun 18, 2016 at 01:20 Initial Consult Date 06/19/2016 Type of Consultation: Cardiology Reason for Consultation Chest pain Referring Provider: KRISTIAN ERICKSON MD Exam/Review of Systems Vital Signs Vitals Vital Signs Date Time Temp Pulse Resp B/P Pulse Ox O2 Delivery O2 Flow Rate FiO2 06/20/16 09:24 68 06/20/16 08:34 98.0 18 133/60 98 06/18/16 16:00 21 06/18/16 05:30 Room Air Intake and Output 06/19/16 06/19/16 06/20/16 15:00 23:00 07:00 Intake Total 850 ml 400 ml Output Total 1000 ml Balance -150 ml 400 ml Exam Review of Systems: CONSTITUTIONAL: No fevers, chills. PULMONARY: No sob CARDIOVASCULAR: No chest pain/palpitations GASTROINTESTINAL: No nausea/vomiting. GENITOURINARY: No hematuria/dysuria. MUSCULOSKELETAL: No myagias/arthalgias. PSYCHIATRIC: The patient denies depression. NEUROLOGIC: No weakness Constitutional: alert, oriented Psych: no complaints Head: normocephalic ENMT: mucosa pink and moist Neck: jvd (9 cm water), supple Respiratory: diminished breath sounds (at bases/B) Cardiovascular: regular rate and rhythm Gastrointestinal: non-tender, soft Musculoskeletal: muscle tone (normal) Extremities: edema (none) Neurological: other (No focal deficits) Results Result Diagram: 06/20/16 0550 06/20/16 0550 Results 24 hrs Laboratory Tests Test 06/19/16 11:59 06/19/16 17:15 06/19/16 17:57 06/19/16 20:41 Lactic Acid Level 1.3 1.3 Bedside Glucose 127 190 Test 06/20/16 05:50 06/20/16 07:14 Anion Gap 15 Basophils # 0.0 Basophils % 0.3 Blood Urea Nitrogen 17 Calcium Level 8.7 Carbon Dioxide Level 29 Chloride Level 101 Creatinine 0.53 Eosinophils # 1.7 H Eosinophils % 12.5 H Glucose Level 136 Hematocrit 42.3 Hemoglobin 14.4 Lymphocytes # 3.1 H Lymphocytes % 22.4 Magnesium Level 2.0 Mean Corpuscular Hemoglobin 31.6 Mean Corpuscular Hemoglobin Concent 34.1 Mean Corpuscular Volume 92.5 Mean Platelet Volume 8.1 Monocytes # 0.9 Monocytes % 6.8 Neutrophils # 8.0 H Neutrophils % 58.0 Nucleated Red Blood Cells # 0.0 Nucleated Red Blood Cells % 0.0 Platelet Count 351 Potassium Level 2.9 *L Red Blood Count 4.57 Red Cell Distribution Width 13.6 Sodium Level 142 White Blood Count 13.7 H Bedside Glucose 142 Medications Medications Current Medications Amlodipine Besylate (Norvasc) 5 mg BID PO Last administered on 06/20/16 08:15; Admin Dose 5 MG; Start 06/18/16 at 09:00 Chlorthalidone (Hygroton) 25 mg DAILY PO Last administered on 06/20/16 08:15; Admin Dose 25 MG; Start 06/18/16 at 09:00 Naphazoline HCl/ Pheniramine Maleate (Visine-A) 2 drop Q4H PRN BOTH EYES RED EYES; Start 06/18/16 at 06:30 Polymyxin/ Trimethoprim Sulfate (Polytrim Oph) 1 drop QID BOTH EYES Last administered on 06/20/16 08:25; Admin Dose 1 DROP; Start 06/18/16 at 09:00 Linagliptin (Tradjenta) 5 mg DAILY PO Last administered on 06/20/16 08:14; Admin Dose 5 MG; Start 06/18/16 at 09:00 Atorvastatin Calcium (Lipitor) 20 mg HS PO Last administered on 06/19/16 21:23 ; Admin Dose 20 MG; Start 06/18/16 at 21:00 Lorazepam (Ativan) 0.5 mg Q8H PRN PO ANXIETY; Start 06/18/16 at 06:30 Ondansetron HCl (Zofran Inj) 4 mg Q6H PRN IV NAUSEA AND/OR VOMITING; Start 06/18 at 06:30 Acetaminophen (Tylenol Tab) 650 mg Q6H PRN PO PAIN LEVEL 1-3 OR FEVER; Start at 06:30 Morphine Sulfate (morphine) 2 mg Q4H PRN IV PAIN LEVEL 7-10; Start 06/18/16 at 06:30 Famotidine (Pepcid) 20 mg DAILY PO Last administered on 06/20/16 08:14; Admin Dose 20 MG; Start 06/18/16 at 09:00 Heparin Sodium (Porcine) 5000 unit 5,000 unit Q12 SC Last administered on 08:15; Admin Dose 5,000 UNIT; Start 06/18/16 at 09:00 Levofloxacin/ Dextrose (Levaquin 250 Mg/ D5W 50 ml (Pmx)) 50 ml @ 50 mls/hr Q24H IVPB Last administered on 06/20/16 05:00; Admin Dose 50 MLS/HR; Start 06/19 at 06:30 Insulin Glargine (Lantus) 10 unit DAILY@08 SC Last administered on 06/20/16 08: 17; Admin Dose 10 UNIT; Start 06/18/16 at 08:00 Diagnostic Test (Pha) (Accucheck) 1 ea 02 XX ; Start 06/19/16 at 02:00 Miscellaneous Information 1 ea NOTE XX ; Start 06/18/16 at 07:00 Glucose (Glutose) 15 gm Q15M PRN PO DECREASED GLUCOSE; Start 06/18/16 at 07:00 Glucose (Glutose) 22.5 gm Q15M PRN PO DECREASED GLUCOSE; Start 06/18/16 at 07:00 Dextrose (D50w Syringe) 25 ml Q15M PRN IV DECREASED GLUCOSE; Start 06/18/16 at 07:00 Dextrose (D50w Syringe) 50 ml Q15M PRN IV DECREASED GLUCOSE; Start 06/18/16 at 07:00 Glucagon (Glucagen) 1 mg Q15M PRN IM DECREASED GLUCOSE; Start 06/18/16 at 07:00 Glucose (Glutose) 15 gm Q15M PRN BUCCAL DECREASED GLUCOSE; Start 06/18/16 at 07: 00 Aspirin (Halfprin) 81 mg DAILY PO Last administered on 06/20/16 08:14; Admin Dose 81 MG; Start 06/18/16 at 09:00 Influenza Virus Vaccine 0.5 ml 0.5 ml ONCE ONCE IM* ; Start 06/21/16 at 09:00; Stop 06/21/16 at 09:01 Potassium Chloride (KCl 40 MEQ/250 ML NS) 250 ml @ 62.5 mls/hr Q4H IVPB Last administered on 06/20/16t 10:18; Admin Dose 62.5 MLS/HR; Start 06/20/16 at 09:00; Stop 06/20/16 at 16:59 KOLE GRIFFITHS Jun 20, 2016 12:00
--- NOTE | 2016-06-20 17:03 | CONS ---
Date/Time of Note Date/Time of Note DATE: 06/20/16 TIME: 17:02 Assessment/Plan Assessment/Plan Chief Complaint/Hosp Course Subjective: Alert, denies pain, no fevers, no dysuria/n/v/d Abx: Levaquin HEENT: Atraumatic, normocephalic, EOMI, PERRL RESPIRATORY: Clear to auscultate bilaterally. CARDIOVASCULAR: S1, S2 with regular rhythm GASTROINTESTINAL: soft, nontender, not distended. Bowel sound is present. No guarding, no rebound. NEUROLOGIC: no focal deficits Assessment: 1. SIRS 2. Acute pyelonephritis 3. DM 4. HTN Plan: Feels good, wbc tracing down, continue abx, anticipate dc on oral Levaquin for 7 days DW staff Problems: Consultation Date/Type/Reason Admit Date/Time Jun 18, 2016 at 01:20 Type of Consultation: id Referring Provider: KRISTIAN ERICKSON MD Exam/Review of Systems Vital Signs Vitals Vital Signs Date Time Temp Pulse Resp B/P Pulse Ox O2 Delivery O2 Flow Rate FiO2 06/20/16 16:42 98.0 78 18 145/65 98 06/18/16 16:00 21 06/18/16 05:30 Room Air Intake and Output 06/19/16 06/19/16 06/20/16 15:00 23:00 07:00 Intake Total 850 ml 400 ml Output Total 1000 ml Balance -150 ml 400 ml Results Result Diagram: 06/20/16 0550 06/20/16 0550 Results 24 hrs Laboratory Tests Test 06/19/16 17:15 06/19/16 17:57 06/19/16 20:41 06/20/16 05:50 Bedside Glucose 127 190 Lactic Acid Level 1.3 Anion Gap 15 Basophils # 0.0 Basophils % 0.3 Blood Urea Nitrogen 17 Calcium Level 8.7 Carbon Dioxide Level 29 Chloride Level 101 Creatinine 0.53 Eosinophils # 1.7 H Eosinophils % 12.5 H Glucose Level 136 Hematocrit 42.3 Hemoglobin 14.4 Lymphocytes # 3.1 H Lymphocytes % 22.4 Magnesium Level 2.0 Mean Corpuscular Hemoglobin 31.6 Mean Corpuscular Hemoglobin Concent 34.1 Mean Corpuscular Volume 92.5 Mean Platelet Volume 8.1 Monocytes # 0.9 Monocytes % 6.8 Neutrophils # 8.0 H Neutrophils % 58.0 Nucleated Red Blood Cells # 0.0 Nucleated Red Blood Cells % 0.0 Platelet Count 351 Potassium Level 2.9 *L Red Blood Count 4.57 Red Cell Distribution Width 13.6 Sodium Level 142 White Blood Count 13.7 H Test 06/20/16 07:14 06/20/16 12:01 Bedside Glucose 142 138 Medications Medications Current Medications Amlodipine Besylate (Norvasc) 5 mg BID PO Last administered on 06/20/16 08:15; Admin Dose 5 MG; Start 06/18/16 at 09:00 Chlorthalidone (Hygroton) 25 mg DAILY PO Last administered on 06/20/16 08:15; Admin Dose 25 MG; Start 06/18/16 at 09:00 Naphazoline HCl/ Pheniramine Maleate (Visine-A) 2 drop Q4H PRN BOTH EYES RED EYES; Start 06/18/16 at 06:30 Polymyxin/ Trimethoprim Sulfate (Polytrim Oph) 1 drop QID BOTH EYES Last administered on 06/20/16 13:00; Admin Dose 1 DROP; Start 06/18/16 at 09:00 Linagliptin (Tradjenta) 5 mg DAILY PO Last administered on 06/20/16 08:14; Admin Dose 5 MG; Start 06/18/16 at 09:00 Atorvastatin Calcium (Lipitor) 20 mg HS PO Last administered on 06/19/16 21:23 ; Admin Dose 20 MG; Start 06/18/16 at 21:00 Lorazepam (Ativan) 0.5 mg Q8H PRN PO ANXIETY; Start 06/18/16 at 06:30 Ondansetron HCl (Zofran Inj) 4 mg Q6H PRN IV NAUSEA AND/OR VOMITING; Start 06/18 at 06:30 Acetaminophen (Tylenol Tab) 650 mg Q6H PRN PO PAIN LEVEL 1-3 OR FEVER; Start at 06:30 Morphine Sulfate (morphine) 2 mg Q4H PRN IV PAIN LEVEL 7-10; Start 06/18/16 at 06:30 Famotidine (Pepcid) 20 mg DAILY PO Last administered on 06/20/16 08:14; Admin Dose 20 MG; Start 06/18/16 at 09:00 Heparin Sodium (Porcine) 5000 unit 5,000 unit Q12 SC Last administered on 08:15; Admin Dose 5,000 UNIT; Start 06/18/16 at 09:00 Levofloxacin/ Dextrose (Levaquin 250 Mg/ D5W 50 ml (Pmx)) 50 ml @ 50 mls/hr Q24H IVPB Last administered on 06/20/16 05:00; Admin Dose 50 MLS/HR; Start 06/19 at 06:30 Insulin Glargine (Lantus) 10 unit DAILY@08 SC Last administered on 06/20/16 08: 17; Admin Dose 10 UNIT; Start 06/18/16 at 08:00 Diagnostic Test (Pha) (Accucheck) 1 ea 02 XX ; Start 06/19/16 at 02:00 Miscellaneous Information 1 ea NOTE XX ; Start 06/18/16 at 07:00 Glucose (Glutose) 15 gm Q15M PRN PO DECREASED GLUCOSE; Start 06/18/16 at 07:00 Glucose (Glutose) 22.5 gm Q15M PRN PO DECREASED GLUCOSE; Start 06/18/16 at 07:00 Dextrose (D50w Syringe) 25 ml Q15M PRN IV DECREASED GLUCOSE; Start 06/18/16 at 07:00 Dextrose (D50w Syringe) 50 ml Q15M PRN IV DECREASED GLUCOSE; Start 06/18/16 at 07:00 Glucagon (Glucagen) 1 mg Q15M PRN IM DECREASED GLUCOSE; Start 06/18/16 at 07:00 Glucose (Glutose) 15 gm Q15M PRN BUCCAL DECREASED GLUCOSE; Start 06/18/16 at 07: 00 Aspirin (Halfprin) 81 mg DAILY PO Last administered on 06/20/16 08:14; Admin Dose 81 MG; Start 06/18/16 at 09:00 Influenza Virus Vaccine (Fluzone) 0.5 ml ONCE ONCE IM* ; Start 06/21/16 at 09:00 ; Stop 06/21/16 at 09:01 MARTI KUMAR NP Jun 20, 2016 17:03
[2016-06-20] MEDS: ATORVASTATIN 20 MG TAB PO SCH (20:53)
[2016-06-21] VITALS (10 sets, daily range): BP systolic 123–142; BP diastolic 56–90; PULSE 69–88; RESP 18
[2016-06-21] MEDS: ACCUCHECK XX SCH (02:00)
[2016-06-21] MEDS: LEVOFLOXACIN 250MG/D5W (PMX) 50 ML IVPB SCH (06:43)
[2016-06-21 07:45] LABS: POTASSIUM 3.3 mmol/L (3.5-5.1)
[2016-06-21 07:48] LABS: CALCIUM 8.9 mg/dl (8.4-10.2); CREATININE 0.6 mg/dl (0.44-1.00)
[2016-06-21 07:52] LABS: BASOPHIL # 0.1 10^3/ul (0.0-0.1); BASOPHILS % 0.4 % (0.0-2.0); EOSINOPHILS # 1.7 10^3/ul (0.0-0.5); EOSINOPHILS % 13.3 % (0.0-7.0); HEMATOCRIT 43.1 % (37.0-47.0); HEMOGLOBIN 14.8 g/dl (12.0-16.0); LYMPHOCYTES # 3.5 10^3/ul (0.8-2.9); LYMPHOCYTES % 26.6 % (15.0-51.0); MEAN CORPUSCULAR HEMOGLOBIN 31.5 pg (29.0-33.0); MEAN CORPUSCULAR HGB CONC 34.3 g/dl (32.0-37.0); MEAN CORPUSCULAR VOLUME 91.9 fl (82.0-101.0); MEAN PLATELET VOLUME 8.4 fl (7.4-10.4); MONOCYTE # 0.9 10^3/ul (0.3-0.9); MONOCYTES % 6.8 % (0.0-11.0); NEUTROPHILS % 52.9 % (39.0-77.0); PLATELET COUNT 383 10^3/UL (140-440); RED BLOOD COUNT 4.69 10^6/ul (4.20-5.40); RED CELL DISTRIBUTION WIDTH 13.3 % (11.5-14.5); UNCORRECTED WBC 13.1 10^3/ul (4.8-10.8); WHITE BLOOD COUNT 13.1 10^3/ul (4.8-10.8)
[2016-06-21 07:59] LABS: CONDITION 1
[2016-06-21] MEDS: INSULIN GLARGINE [LANtus] 3 ML PEN SC SCH (08:02)
[2016-06-21] MEDS: INSULIN ASPART [NOVOLOG] 3 ML PEN SC SCH ×2 (08:02→12:06)
[2016-06-21] MEDS: LINAGLIPTIN 5 MG TABLET PO SCH (08:22)
[2016-06-21] MEDS: ASPIRIN (EC) 81 MG TAB PO SCH (08:23)
[2016-06-21] MEDS: CHLORTHALIDONE 25 MG TAB PO SCH (08:23)
[2016-06-21] MEDS: AMLODIPINE 5 MG TAB PO SCH (08:23)
[2016-06-21] MEDS: FAMOTIDINE 20 MG TAB PO SCH (08:23)
[2016-06-21] MEDS: HEPARIN 5,000 UNIT/0.5 ML SYG SC SCH (08:28)
[2016-06-21] MEDS: POLYMYXIN/TRIMETHOPRIM 10 ML OPH BOTH EYES SCH ×2 (08:29→14:01)
[2016-06-21] MEDS ORDERED: INFLUENZA VIRUS VACCINE 0.5 ML SYG IM* ONE (09:00)
[2016-06-21] MEDS ORDERED: REGADENOSON 0.4 MG/5 ML SYG ONE (09:34)
--- NOTE | 2016-06-21 10:45 | CONS ---
Date/Time of Note Date/Time of Note DATE: 06/21/16 TIME: 10:43 Assessment/Plan Assessment/Plan Additional Assessment/Plan 1.Chest pain-negative troponinx 3 - stress test today 2.Abnl ecg-inferior ST depressions - doubt acute ischemia - will monitor clinically 3.HTN - well Rx, con't med rx 4.HL 5.Leukocytosis - anti-bx per primary team if needed Consultation Date/Type/Reason Admit Date/Time Jun 18, 2016 at 01:20 Initial Consult Date Type of Consultation: id Referring Provider: KRISTIAN ERICKSON MD 24 HR Interval Summary Free Text/Dictation No acute events - Stress test planned today ROS: No fever, no chills, no nausea, no vomiting, no diarrhea/constipation No recent weight changes No chest pain, no PND, no orthopnea No dizziness, blurred vision No thirst, no heat or cold intolerance Exam/Review of Systems Vital Signs Vitals Vital Signs Date Time Temp Pulse Resp B/P Pulse Ox O2 Delivery O2 Flow Rate FiO2 06/21/16 08:39 69 06/21/16 07:53 98.3 18 138/63 95 06/18/16 16:00 21 06/18/16 05:30 Room Air Intake and Output 06/20/16 06/20/16 06/21/16 15:00 23:00 07:00 Intake Total 900 ml Output Total 1200 ml Balance -300 ml Exam General: WN/WD/NAD, AOx 3 HEENT: Unicetric/atraumatic/EOMI (follow commands) NECK: JVD elevated, no thyromegaly Lymph: no lymphadenopathy HEART: regular with no S3, II/ systolic murmur at apex LUNGS: Coarse sounds ABD: soft, NT, ND, +BS : Intact Neuro: non focal SKIN: chronic changes EXT: trace edema Results Result Diagram: 06/21/16 0645 06/21/16 0645 Results 24 hrs Laboratory Tests Test 06/20/16 12:01 06/20/16 17:57 06/20/16 20:52 06/21/16 06:45 Bedside Glucose 138 152 161 Anion Gap 17 H Basophils # 0.1 Basophils % 0.4 Blood Urea Nitrogen 17 Calcium Level 8.9 Carbon Dioxide Level 30 Chloride Level 98 Creatinine 0.60 Eosinophils # 1.7 H Eosinophils % 13.3 H Glucose Level 141 Hematocrit 43.1 Hemoglobin 14.8 Lymphocytes # 3.5 H Lymphocytes % 26.6 Mean Corpuscular Hemoglobin 31.5 Mean Corpuscular Hemoglobin Concent 34.3 Mean Corpuscular Volume 91.9 Mean Platelet Volume 8.4 Monocytes # 0.9 Monocytes % 6.8 Neutrophils # 7.0 Neutrophils % 52.9 Nucleated Red Blood Cells # 0.0 Nucleated Red Blood Cells % 0.0 Platelet Count 383 Potassium Level 3.3 L Red Blood Count 4.69 Red Cell Distribution Width 13.3 Sodium Level 142 White Blood Count 13.1 H Test 06/21/16 07:57 Bedside Glucose 141 Medications Medications Current Medications Amlodipine Besylate (Norvasc) 5 mg BID PO Last administered on 06/21/16 08:23; Admin Dose 5 MG; Start 06/18/16 at 09:00 Chlorthalidone (Hygroton) 25 mg DAILY PO Last administered on 06/21/16 08:23; Admin Dose 25 MG; Start 06/18/16 at 09:00 Naphazoline HCl/ Pheniramine Maleate (Visine-A) 2 drop Q4H PRN BOTH EYES RED EYES; Start 06/18/16 at 06:30 Polymyxin/ Trimethoprim Sulfate (Polytrim Oph) 1 drop QID BOTH EYES Last administered on 06/21/16 08:29; Admin Dose 1 DROP; Start 06/18/16 at 09:00 Linagliptin (Tradjenta) 5 mg DAILY PO Last administered on 06/21/16 08:22; Admin Dose 5 MG; Start 06/18/16 at 09:00 Atorvastatin Calcium (Lipitor) 20 mg HS PO Last administered on 06/20/16 20:53 ; Admin Dose 20 MG; Start 06/18/16 at 21:00 Lorazepam (Ativan) 0.5 mg Q8H PRN PO ANXIETY; Start 06/18/16 at 06:30 Ondansetron HCl (Zofran Inj) 4 mg Q6H PRN IV NAUSEA AND/OR VOMITING; Start 06/18 at 06:30 Acetaminophen (Tylenol Tab) 650 mg Q6H PRN PO PAIN LEVEL 1-3 OR FEVER; Start at 06:30 Morphine Sulfate (morphine) 2 mg Q4H PRN IV PAIN LEVEL 7-10; Start 06/18/16 at 06:30 Famotidine (Pepcid) 20 mg DAILY PO Last administered on 06/21/16 08:23; Admin Dose 20 MG; Start 06/18/16 at 09:00 Heparin Sodium (Porcine) 5000 unit 5,000 unit Q12 SC Last administered on 08:28; Admin Dose 5,000 UNIT; Start 06/18/16 at 09:00 Levofloxacin/ Dextrose (Levaquin 250 Mg/ D5W 50 ml (Pmx)) 50 ml @ 50 mls/hr Q24H IVPB Last administered on 06/21/16 06:43; Admin Dose 50 MLS/HR; Start 06/19 at 06:30 Insulin Glargine (Lantus) 10 unit DAILY@08 SC Last administered on 06/21/16 08: 02; Admin Dose 10 UNIT; Start 06/18/16 at 08:00 Diagnostic Test (Pha) (Accucheck) 1 ea 02 XX ; Start 06/19/16 at 02:00 Miscellaneous Information 1 ea NOTE XX ; Start 06/18/16 at 07:00 Glucose (Glutose) 15 gm Q15M PRN PO DECREASED GLUCOSE; Start 06/18/16 at 07:00 Glucose (Glutose) 22.5 gm Q15M PRN PO DECREASED GLUCOSE; Start 06/18/16 at 07:00 Dextrose (D50w Syringe) 25 ml Q15M PRN IV DECREASED GLUCOSE; Start 06/18/16 at 07:00 Dextrose (D50w Syringe) 50 ml Q15M PRN IV DECREASED GLUCOSE; Start 06/18/16 at 07:00 Glucagon (Glucagen) 1 mg Q15M PRN IM DECREASED GLUCOSE; Start 06/18/16 at 07:00 Glucose (Glutose) 15 gm Q15M PRN BUCCAL DECREASED GLUCOSE; Start 06/18/16 at 07: 00 Aspirin (Halfprin) 81 mg DAILY PO Last administered on 06/21/16 08:23; Admin Dose 81 MG; Start 06/18/16 at 09:00 DEONTE ISABEL MD Jun 21, 2016 10:45
--- NOTE | 2016-06-21 13:27 | RADRPT ---
PROCEDURE: Lexiscan myocardial perfusion study CLINICAL INDICATION: 81 -year-old patient complaining of chest pain. TECHNIQUE: Lexiscan 0.4 mg intravenously separate acquisition gated myocardial perfusion SPECT usi ng Tc 99m Myoview 30.3 mCi intravenously at stress and Tc-99m Myoview, 10.1 mCi intravenously at res t was performed using the rest/stress sequence. Poststress Myoview SPECT images were obtained in th e supine position. COMPARISON: No prior studies. FINDINGS: Perfusion images reveal no evidence of perfusion defects. Lexiscan post stress gated SPECT images demonstrate no wall motion abnormalities. IMPRESSION: 1. Normal study with no evidence of perfusion defects or wall motion abnormalities. 2. The left ventricle ejection fraction at stress is greater than 70%. A call report was made to Dr. Temple at 01:25 p.m. on June 21, 2016. RPTAT: HH .Neela Harrison MD, Date Time Electronically viewed and signed by .Neela Harrison MD, on 06/21/2016 13:27 .L/
--- NOTE | 2016-06-21 14:31 | CARRPT ---
DATE OF PROCEDURE: LEXISCAN CARDIAC STRESS TEST REFERRING PHYSICIAN: Nicolas Mirza MD REASON FOR TEST: Chest pain. DESCRIPTION: The patient was brought to the heart station in fasting condition. Initial blood pres sure was 134/74, heart rate was in the 80s. The patient had some nonspecific EEG changes. The gabriella ent tolerated the injection well. She did not have any tachybrady arrhythmias. Heart rate went up to 87. The imaging portion of the report will be dictated separately. Dictated By: DEONTE ISABEL MD ML/NTS Conf#: [id number] DID#: [id number]
[2016-06-21] MEDS ORDERED: ASPI-664 PO (15:13)
[2016-06-21] MEDS ORDERED: LEVO500T10 PO (15:13)
--- NOTE | 2016-06-21 15:20 | PDOCDIS ---
Discharge Instructions DIAGNOSIS Discharge Diagnosis: Sepsis 2/2 pyelonephritis CONDITION Patient Condition: Stable HOME CARE INSTRUCTIONS: Special Diet: diabetic diet ACTIVITY: Activity Restrictions: Slowly Increase Activity Rest between Activity Avoid heavy lifting FOLLOW UP/APPOINTMENTS Appointments follow up with primary care physician in one week. follow up with cardiology in 2 weeks. OTHER ORDERS: Other Orders: Pyelonephritis - take the levaquin 500 mg by mouth once a day for the next 5 days. Keep hydrating with 2 L per day total liquids NEVAEH SAENZ MD Jun 21, 2016 15:20
--- NOTE | 2016-06-21 22:52 | CONS ---
Date/Time of Note Date/Time of Note DATE: 06/21/16 TIME: 11:51 Assessment/Plan Assessment/Plan Chief Complaint/Hosp Course Subjective: Alert, denies pain, no fevers, no dysuria/n/v/d Abx: Levaquin HEENT: Atraumatic, normocephalic, EOMI, PERRL RESPIRATORY: Clear to auscultate bilaterally. CARDIOVASCULAR: S1, S2 with regular rhythm GASTROINTESTINAL: soft, nontender, not distended. Bowel sound is present. No guarding, no rebound. NEUROLOGIC: no focal deficits Assessment: 1. SIRS 2. Acute pyelonephritis 3. DM 4. HTN Plan: Stable, wants to go home, all cx's negative, anticipate dc on oral Levaquin for 7 days DW staff Problems: Consultation Date/Type/Reason Admit Date/Time Jun 18, 2016 at 01:20 Type of Consultation: id Referring Provider: KRISTIAN ERICKSON MD Exam/Review of Systems Vital Signs Vitals Vital Signs Date Time Temp Pulse Resp B/P Pulse Ox O2 Delivery O2 Flow Rate FiO2 06/21/16 16:31 83 06/21/16 15:28 98.1 18 142/90 96 06/18/16 16:00 21 06/18/16 05:30 Room Air Intake and Output 06/20/16 06/20/16 06/21/16 15:00 23:00 07:00 Intake Total 900 ml Output Total 1200 ml Balance -300 ml Results Result Diagram: 06/21/16 0645 06/21/16 0645 Results 24 hrs Laboratory Tests Test 06/21/16 06:45 06/21/16 07:57 06/21/16 12:01 Anion Gap 17 H Basophils # 0.1 Basophils % 0.4 Blood Urea Nitrogen 17 Calcium Level 8.9 Carbon Dioxide Level 30 Chloride Level 98 Creatinine 0.60 Eosinophils # 1.7 H Eosinophils % 13.3 H Glucose Level 141 Hematocrit 43.1 Hemoglobin 14.8 Lymphocytes # 3.5 H Lymphocytes % 26.6 Mean Corpuscular Hemoglobin 31.5 Mean Corpuscular Hemoglobin Concent 34.3 Mean Corpuscular Volume 91.9 Mean Platelet Volume 8.4 Monocytes # 0.9 Monocytes % 6.8 Neutrophils # 7.0 Neutrophils % 52.9 Nucleated Red Blood Cells # 0.0 Nucleated Red Blood Cells % 0.0 Platelet Count 383 Potassium Level 3.3 L Red Blood Count 4.69 Red Cell Distribution Width 13.3 Sodium Level 142 White Blood Count 13.1 H Bedside Glucose 141 181 MARTI KUMAR NP Jun 21, 2016 22:52
--- NOTE | 2016-06-22 06:32 | DS ---
DATE OF ADMISSION: 06/18/2016 DATE OF DISCHARGE: 06/21/2016 DISCHARGE DIAGNOSES: 1. Sepsis secondary to pyelonephritis, improved. 2. ST depressions status post negative stress test. 3. Type 2 diabetes, hemoglobin A1c of 8.2. 4. Hypertension, essential. 5. High cholesterol. HOSPITAL COURSE: This is a pleasant 81-year-old female with a past medical history of essential hypertension, type 2 diabetes, dyslipidemia, who presented to the hospital complaining of fevers, chills, headache, neck pain and back pain. She denies any blurred vision or neurologic deficits and she was becoming lightheaded as well. Initially, thought was meningitis, so she was admitted to telemetry and precautions. ID was also consulted. Initial CT of the brain had shown: 1. No acute intracranial pathology. 2. Mild diffuse volume loss and mild chronic microvascular ischemic changes. 3. 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 CT abdomen and pelvis had shown: Minimal hepatic steatosis and bilateral minimal hydronephrosis again seen, atherosclerosis, colonic diverticulosis, no specific evidence of acute diverticulitis seen, consistent with uterine fibroids again seen. Please see above. Chest x-ray was done showed stable chest x-ray. No evidence of acute cardiopulmonary disease. A nuclear stress test done today showed: 1. Normal study with no evidence of perfusion defects or wall motion abnormalities. 2. The left ventricle ejection fraction at stress is greater than 70%. Initial laboratory findings had shown sodium 141, potassium 3.4, chloride 95, carbon dioxide 30, anion gap 19, BUN of 18, creatinine 0.60, glucose of 201. Lactic acid initial was 3.5, then went down to 2.3 to 1.3. Hemoglobin A1c again is 8.2. Albumin 3.0. Triglycerides 182, cholesterol 152, LDL 84, HDL 32. Current potassium 3.3, which was repleted. BUN and creatinine are 17 and 0.60. Coags were within normal limits. Initial CBC: WBC is 28.2, H and H of 14.5 and 42.8 with platelets of 362. Current white count of 13.1, H and H of 14.8 and 43.1, platelets 383. Urine was moderate squamous cells, moderate bacteria, 2 to 5 microscopic RBCs, WBCs 0 to 2. Other body source CSF was negative, showing glucose of 98, total protein of 51. Microbiology: Blood cultures were negative. Urine cultures were negative after 48 hours. Gram stain was negative. On the day of discharge, the patient's overall function is improved. She did have an echocardiogram 06/18/2016 for that had shown: 1. Normal left ventricular systolic function, normal left ventricular cavity size, mild concentric left ventricular hypertrophy, ejection fraction visually estimated at 65%. Tissue Doppler indices are within normal limits, E to E prime equals 12. 2. Normal right ventricular size, normal right ventricular systolic function. 3. Mild mitral annular calcification. Mild mitral valve regurgitation. 4. No significant aortic stenosis or insufficiency, aortic sclerosis without stenosis, trileaflet aortic valve. normal appearance of the tricuspid valve. Unable to obtain RVSP due to minimal presence of tricuspid regurgitation. No evidence of tricuspid regurgitation. 5. Normal pericardium with no significant pericardial effusion. Subsequently, the patient is doing better today and had overall no fevers over the last 24 hours. Vital signs have been stable. Physical exam and findings are improved. I spoke to the patient at length about the care plan and agree with the care plan. DISPOSITION: Home. CONDITION: Stable. DISCHARGE MEDICATIONS: Include: 1. Aspirin 81 mg p.o. daily. 2. Levaquin 500 mg p.o. daily for the next 7 days. 3. Norvasc 5 mg p.o. b.i.d. 4. Zyrtec 10 mg p.o. daily. 5. Chlorthalidone 25 mg p.o. daily. 6. Metformin 500 mg p.o. daily. 7. Visine A 2 drops to both eyes q.4h. p.r.n. for redness and itching. 8. Polymyxin B and TMP eyedrops 1 drop both eyes for 7 days total, q.i.d. 9. Zocor 40 mg p.o. at bedtime. 10. Januvia 100 mg p.o. daily. FOLLOWUP: The patient will follow up with the primary care physician within a week. Will follow with cardiology within 2 weeks. Will follow up with ID as needed thereafter. The patient and consultants were made aware of this and agree with the plan. COORDINATION OF DISCHARGE: Greater than 40 minutes. Dictated By: NEVAEH SANDHU/MARIETTA Conf#: [id number] DID#: [id number] [id number]
--- NOTE | 2016-06-23 11:42 | RADRPT ---
Vent Rate: 70 bpm RR Interval: 0 msec MN Interval: 178 msec QRS Duration: 100 msec QT Interval: 444 msec QTC Interval: 479 msec P-R-T [place]: 45 - 53 - 61 degrees Normal sinus rhythm Normal ECG Electronically Signed By: Bandar Kearns [id number]
== END 2016-06-21 17:00 | disposition home or self-care (01) | DRG 872 ==
LOC: E/R 16:33 → TEL 06-18 01:20
PROVIDERS: ADMIT Internal Medicine; ATTEND Internal Medicine
PROC: 009U3ZX Drainage of Spinal Canal, Percutaneous Approach, Diagnostic (ICD-10-PCS; principal; 2016-06-18)
DX: A41.9 Sepsis, unspecified organism (principal); E87.2 Acidosis; N10 Acute pyelonephritis; I10 Essential (primary) hypertension; E11.9 Type 2 diabetes mellitus without complications; E78.5 Hyperlipidemia, unspecified; R07.9 Chest pain, unspecified; R94.31 Abnormal electrocardiogram [ECG] [EKG]; Z79.82 Long term (current) use of aspirin; Z79.4 Long term (current) use of insulin; Z90.49 Acquired absence of other specified parts of digestive tract
CPT/HCPCS: 36415; 70450; 71010; 74176; 78452; 80048; 80053; 80061; 81001; 81003; 82550; 82553; 82945; 82962; 83036; 83605; 83735; 84100; 84157; 84484; 85025; 85610; 85730; 87040; 87070; 87086; 89050; 90686; 93005; 93017; 93306; 96374; 96375; 97162; A9500; A9505; J0696; J1815; J1956; J2785; J3370; J3480; J7030; P9612

== ENCOUNTER 2018-08-21 10:44 | Emergency (ER) | payer OTHER ==
[~2018-08-21] VITALS: Ht 157.5 cm; Wt 68.2 kg
[~2018-08-21 10:44] MED LIST changes: +ASPI-817 PO; -CEPH500C PO; -CHLO25TA13 PO; +CHLO25TA2 PO; +LEVO500T10 PO; -METF-382 PO; +METF500T24 PO; -NAPH15DR22 BOTH EYES; +NAPH15DR69 BOTH EYES; -ONDA-43 PO; +SITA100T11 PO; -SITA100T8 PO
[2018-08-21 11:13] VITALS: Ht 157.5 cm; Wt 68.2 kg
[2018-08-21] MEDS ORDERED: VANCOMYCIN 1 GM (PMX) 250 ML IVPB STA (11:40)
[2018-08-21] MEDS ORDERED: CEFEPIME 1GM/50 ML (PMX) 50 ML IVPB STA (11:40)
[2018-08-21] MEDS ORDERED: SODIUM CHLORIDE 0.9% 1L BAG IV* STA (11:55)
[2018-08-21] MEDS ORDERED: ALBUTEROL 0.083% (NEB) 2.5 MG/3 ML AMP INH ONE (12:00)
[2018-08-21] MEDS ORDERED: IPRATROPIUM (NEB) 0.5 MG/2.5 ML AMP INH ONE (12:00)
--- NOTE | 2018-08-21 12:45 | ERD ---
ER Documentation Chief Complaint Chief Complaint COUGH X2 WEEKS, ALREADY COMPLETED TAKING ABD HPI Very pleasant 83-year-old female who was just hospitalized for pneumonia who completed antibiotic regimen on Monday presents with persistent cough, subjective fevers and difficulty breathing. She denies any chest pain or pressure but does have some mild chest wall pain with coughing. The cough is productive with yellowish and greenish sputum. It also appears the patient was recently diagnosed with influenza. Patient notes worsening shortness of breath that prompted visit to the emergency room. ROS All systems reviewed and are negative except as per history of present illness. Medications Home Meds Reported Medications Albuterol Sulfate* (Ventolin HFA*) 18 Gm Hfa.aer.ad, 2 PUFF INHALATION Q8H, #1 INHALER 08/21/18 Aspirin* (Aspirin* EC) 81 Mg Tablet., 81 MG PO DAILY, TAB 08/21/18 Amlodipine Besylate* (Amlodipine Besylate*) 10 Mg Tablet, 10 MG PO DAILY, #30 TAB 08/21/18 Metformin Hcl* (Metformin Hcl*) 1,000 Mg Tablet, 1000 MG PO WITH BREAKFAST DINNE, #60 TAB 08/21/18 Discontinued Reported Medications Sitagliptin* (Januvia*) 100 Mg Tablet, 100 MG PO DAILY, #30 TAB 11/23/15 Simvastatin* (Zocor*) 40 Mg Tablet, 40 MG PO QHS, #30 TAB 11/23/15 Chlorthalidone* (Chlorthalidone*) 25 Mg Tablet, 25 MG PO DAILY, TAB 11/23/15 Metformin Hcl* (Metformin Hcl*) 500 Mg Tablet, 500 MG PO BID 05/20/13 Discontinued Scripts Levofloxacin* (Levofloxacin*) 500 Mg Tablet, 500 MG PO DAILY for 7 Days, TAB Prov:NEVAEH SAENZ MD 06/21/16 Aspirin* (Aspirin* EC) 81 Mg Tablet., 81 MG PO DAILY for 90 Days, #90 Prov:NEVAEH SAENZ MD 06/21/16 Cetirizine Hcl* (Zyrtec*) 10 Mg Capsule, 10 MG PO DAILY, #30 TAB.CHEW Prov:HUSSEIN CORTES NP 06/07/16 Naphazoline-Pheniramine* (Visine-A*) 15 Ml Drops, 2 DROP BOTH EYES Q4H PRN for RED EYES, #1 BOT Prov:HUSSEIN CORTESEleuterio BORDER GUARD 06/07/16 Polymyxin B Sulfate-TMP* (Polymyxin B-TMP Eye Drops*) 10 Ml Drops, 1 DROP BOTH EYES QID for 7 Days, EA Prov:HUSSEIN CORTESEleuterio BORDER GUARD 06/07/16 Amlodipine Besylate* (Norvasc*) 5 Mg Tablet, 5 MG PO BID, #60 TAB Prov:KRISTIAN ERICKSON MD 11/24/15 Allergies Allergies: Coded Allergies: No Known Drug Allergy (Verified Allergy, Unknown, 08/21/18) PMhx/Soc History of Surgery: Yes (2014 - abdominal hernia repair; 2016 - gallbladder surgery) Anesthesia Reaction: No Hx Neurological Disorder: No Hx Respiratory Disorders: No Hx Cardiac Disorders: Yes (HTN ) Hx Psychiatric Problems: No Hx Miscellaneous Medical Probl: No Hx Alcohol Use: No Hx Substance Use: No Hx Tobacco Use: No Smoking Status: Never smoker FmHx Family History: No diabetes Physical Exam Vitals Vital Signs Date Temp Pulse Resp B/P (MAP) Pulse Ox O2 O2 Flow FiO2 Time Delivery Rate 08/21/18 70 19 94 21 12:39 08/21/18 76 22 159/54 98 Room Air 11:30 (89) 08/21/18 99.5 82 20 110/55 95 11:13 (73) Physical Exam General: Well developed, well nourished, no acute distress Head: Normocephalic, atraumatic. Eyes: Pupils equally reactive, EOM intact ENT: Moist mucous membranes Neck: Supple, no lymphadenopathy Respiratory: Rhonchi and scant wheezing bilaterally, no significant increased work of breathing Cardiovascular: RRR, no murmurs, rubs, or gallops Abdominal: Soft, non-tender, non-distended, no peritoneal signs : Deferred MSK: No edema, no unilateral swelling, 5/5 strength Neurologic: Alert and oriented, moving all extremities, normal speech, no focal weakness, no cerebellar signs Skin: No rash Psych: Normal mood Result Diagram: 08/21/18 1155 08/21/18 1155 Results 24 hrs Laboratory Tests Test 08/21/18 11:53 08/21/18 11:55 POC Venous Lactate 2.5 mmol/L White Blood Count 11.8 10^3/ul Red Blood Count 4.73 10^6/ul Hemoglobin 14.1 g/dl Hematocrit 43.3 % Mean Corpuscular Volume 91.5 fl Mean Corpuscular Hemoglobin 29.8 pg Mean Corpuscular Hemoglobin Concent 32.6 g/dl Red Cell Distribution Width 13.6 % Platelet Count 474 10^3/UL Mean Platelet Volume 9.7 fl Immature Granulocytes % 1.400 % Neutrophils % 52.7 % Lymphocytes % 27.6 % Monocytes % 6.5 % Eosinophils % 11.0 % Basophils % 0.8 % Nucleated Red Blood Cells % 0.0 /100WBC Immature Granulocytes # 0.170 10^3/ul Neutrophils # 6.2 10^3/ul Lymphocytes # 3.3 10^3/ul Monocytes # 0.8 10^3/ul Eosinophils # 1.3 10^3/ul Basophils # 0.1 10^3/ul Nucleated Red Blood Cells # 0.0 10^3/ul Sodium Level 141 mmol/L Potassium Level 4.2 mmol/L Chloride Level 104 mmol/L Carbon Dioxide Level 30 mmol/L Anion Gap 7 Blood Urea Nitrogen 12 mg/dl Creatinine 0.47 mg/dl Est Glomerular Filtrat Rate mL/min mL/min Glucose Level 311 mg/dl Calcium Level 9.1 mg/dl Troponin I < 0.012 ng/ml Current Medications Medications Dose Sig/Osmar Start Time Status Last (Trade) Ordered Route PRN Stop Time Admin Dose Reason Admin Albuterol 2.5 mg ONCE ONCE 08/21/18 DC 08/21/18 (Proventil INH 12:00 08/21/18 12:39 0.083% (Neb)) 12:01 Ipratropium 0.5 mg ONCE ONCE 08/21/18 DC 08/21/18 [place] INH 12:00 08/21/18 12:39 (Atrovent 12:01 0.02% (Neb)) Cefepime HCl 50 ml @ ONCE STAT 08/21/18 DC 08/21/18 100 mls/hr IVPB 11:40 08/21/18 12:09 12:09 Vancomycin 250 ml @ ONCE STAT 08/21/18 DC 08/21/18 HCl 125 mls/hr IVPB 11:40 08/21/18 12:36 13:39 Sodium 2,050 ml BOLUS OVER 2 08/21/18 DC 08/21/18 Chloride HOURS STAT 11:55 08/21/18 12:09 (NS) IV* 11:57 Procedures/MDM EKG, MONITORS, & DIAGNOSTIC IMAGING: EKG: I reviewed and interpreted a 12-lead EKG. Rhythm: Normal sinus rhythm ST Changes: No contiguous ST segment elevations T waves: No contiguous T wave inversions Impression: No evidence of acute cardiac ischemia Chest x-ray: I reviewed and interpreted a 1 view of the chest Mediastinum: No enlargement Cardiac silhouette: No cardiomegaly Airspace: Possible left lower lobe atelectasis versus infiltrate Bones: No evidence of fracture LAB INTERPRETATION: I reviewed the laboratory testing and it shows white count of 11, lactic acid of 2.5, hyperglycemia without diabetic ketoacidosis MEDICAL DECISION MAKING: The patient presents to the emergency with persistent cough, wheezing and rhonchi concerning for superimposed bacterial infection on top of pneumonia versus failed outpatient antibiotic treatment. Given the patient's age, she is unlikely to tolerate outpatient management. The patient would benefit from breathing treatment, broad-spectrum antibiotics and hospitalization. ER COURSE: * Sepsis screening was initiated while the patient's lactic acid is slightly elevated she does not meet Sirs criteria. The patient however has been treated as sepsis with a 30 cc/kg bolus of saline, blood cultures prior to broad-spectrum antibiotics. * Patient given a breathing treatment. * Vancomycin and cefepime provided given recent hospitalization * Patient is hemodynamically stable and does not require pressors or central line. CONSULTATION: None DISPOSITION PLAN: Accepting care team and consultations: I discussed the current laboratory data, diagnostic imaging and emergency care provided. Admitting team: Patient is capitated to [facility]. I spoke to Dr. Arboleda who is accepted the case. Admitting team indication: Insurance directed Departure Diagnosis: Primary Impression: Community acquired pneumonia Laterality: left Lung location: lower lobe of lung Qualified Codes: J18.1 - Lobar pneumonia, unspecified organism Additional Impressions: Lactic acidosis Hyperglycemia Condition: Stable SHIRA BURGOS MD Aug 21, 2018 12:45
[2018-08-21] MEDS ORDERED: METF100010 PO (12:47)
[2018-08-21] MEDS ORDERED: ASPI-817 PO (12:48)
[2018-08-21] MEDS ORDERED: AMLO-147 PO (12:48)
[2018-08-21] MEDS ORDERED: ALBU18HF INHALATION (12:50)
[2018-08-21 20:33] VITALS: BP 133/83; PULSE 83; RESP 18
== END 2018-08-21 20:39 | disposition short-term general hospital (02) ==
LOC: E/R 10:44
DX: J18.1 Lobar pneumonia, unspecified organism (principal); I10 Essential (primary) hypertension; E87.2 Acidosis; R73.9 Hyperglycemia, unspecified; Z79.82 Long term (current) use of aspirin; Z79.84 Long term (current) use of oral hypoglycemic drugs
CPT/HCPCS: 36415; 71045; 80048; 83605; 84484; 85025; 87040; 87400; 93005; 94664; 96365; 96366; 96367; J0692; J3370; J7030; Z7502; Z7610